=== PATIENT | male | born 1960 | race Hispanic/Latino ===

== ENCOUNTER 2017-02-02 04:07 | Inpatient (IN) | payer MEDICAID ==
--- NOTE | 2017-02-02 04:22 | ED PDOC ---
Arrival/HPI - General Chief Complaint: Chest Pain Time Seen by Provider: 02/02/17 04:09 Historian: Patient - History of Present Illness Narrative History of Present Illness (Text): 02/02/17 04:22 Kolby Castañeda is a 56 year old male, whose past medical history includes CAD s/p PTCA, hypertension, diabetes, and hyperlipidemia, who presents to the Emergency department complaining of intermittent left-sided chest tightess since 22:00 4 days ago. Patient had an aspirin at home earlier and states he feeding better currently. Patient denies any fever, chills, shortness of breath , nausea, vomiting, diarrhea, urinary symptoms, back pain, neck pain, headache, dizziness, or any other complaints. Time/Duration: < week (4 days) Symptom Onset: Gradual Symptom Course: Unchanged, Intermittent Activities at Onset: Rest, Light Context: Home Past Medical History - Provider Review Nursing Documentation Reviewed: Yes - Infectious Disease Hx of Infectious Diseases: None - Cardiac Hx Hypertension: Yes - Pulmonary Hx Respiratory Disorders: No - Neurological Hx Neurological Disorder: No - HEENT Other/Comment: Chronic Left ear condition, missing left TM. - Renal Hx Renal Disorder: No - Endocrine/Metabolic Hx Diabetes Mellitus Type 2: Yes - Hematological/Oncological Hx Blood Disorders: No - Integumentary Hx Dermatological Disorder: No - Musculoskeletal/Rheumatological Hx Musculoskeletal Disorders: No Hx Falls: No - Gastrointestinal Hx Gastrointestinal Disorders: No - Genitourinary/Gynecological Hx Genitourinary Disorders: No - Psychiatric Hx Psychophysiologic Disorder: No Hx Substance Use: No - Surgical History Hx Cholecystectomy: Yes Other/Comment: cyst on back - Anesthesia Hx Anesthesia: No - Suicidal Assessment Feels Threatened In Home Enviroment: No Family/Social History - Physician Review Nursing Documentation Reviewed: Yes Family/Social History: No Known Family HX Smoking Status: Never Smoked Hx Alcohol Use: Yes (social) Hx Substance Use: No Hx Substance Use Treatment: No Allergies/Home Meds Allergies/Adverse Reactions: Allergies No Known Allergies Allergy (Verified 02/02/17 04:10) Home Medications: Home Meds Medication Instructions Recorded Confirmed Canagliflozin [Invokana] 100 mg PO DAILY 11/30/16 02/02/17 Cetirizine HCl [Wal-Zyr] 10 mg PO DAILY 11/30/16 02/02/17 Fenofibrate [Triglide] 160 mg PO DAILY 11/30/16 02/02/17 Folic Acid 400 mg PO BID 11/30/16 02/02/17 Insulin Glargine, Recombina 50 unit SC HS 11/30/16 02/02/17 [Lantus] Insulin Lispro [humALOG] 18 units SC TID 11/30/16 02/02/17 Losartan [Cozaar] 100 mg PO DAILY 11/30/16 02/02/17 Metoprolol Succinate [Toprol XL] 25 mg PO BID 11/30/16 02/02/17 Multivit-Min/FA/Lycopen/Lutein 1 each PO DAILY 11/30/16 02/02/17 [Centrum Silver Tablet] Omeprazole 40 mg PO DAILY 11/30/16 02/02/17 Pravastatin Sodium [Pravachol] 80 mg PO DAILY 11/30/16 02/02/17 metFORMIN [glucOPHAGE] 500 mg PO BID 11/30/16 02/02/17 Aspirin [Ecotrin] 81 mg PO DAILY 02/02/17 02/02/17 Review of Systems - Physician Review All systems were reviewed & negative as marked: Yes - Review of Systems Constitutional: Normal Eyes: Normal ENT: Normal Respiratory: Normal. absent: SOB, Cough Cardiovascular: Chest Pain Gastrointestinal: Normal. absent: Abdominal Pain, Diarrhea, Nausea Genitourinary Male: Normal. absent: Dysuria, Frequency, Hematuria, Urinary Output Changes Musculoskeletal: Normal. absent: Back Pain, Neck Pain Skin: Normal Neurological: Normal. absent: Headache, Dizziness Endocrine: Normal Hemo/Lymphatic: Normal Psychiatric: Normal Physical Exam Vital Signs Reviewed: Yes Vital Signs Temp Pulse Resp BP Pulse Ox 02/02/17 07:56 98.2 F 80 18 117/62 99 02/02/17 06:30 81 16 122/70 97 02/02/17 04:16 93 H 18 135/71 98 Temperature: Afebrile Blood Pressure: Normal Pulse: Regular Respiratory Rate: Normal Appearance: Positive for: Well-Appearing, Non-Toxic, Comfortable Pain Distress: None Mental Status: Positive for: Alert and Oriented X 3 - Systems Exam Head: Present: Atraumatic, Normocephalic Pupils: Present: PERRL Extroacular Muscles: Present: EOMI Conjunctiva: Present: Normal Mouth: Present: Moist Mucous Membranes Neck: Present: Normal Range of Motion Respiratory/Chest: Present: Clear to Auscultation, Good Air Exchange. No: Respiratory Distress, Accessory Muscle Use Cardiovascular: Present: Regular Rate and Rhythm, Normal S1, S2. No: Murmurs Abdomen: Present: Normal Bowel Sounds. No: Tenderness, Distention, Peritoneal Signs Back: Present: Normal Inspection Upper Extremity: Present: Normal Inspection. No: Cyanosis, Edema Lower Extremity: Present: Normal Inspection. No: Edema Neurological: Present: GCS=15, CN II-XII Intact, Speech Normal Skin: Present: Warm, Dry, Normal Color. No: Rashes Psychiatric: Present: Alert, Oriented x 3, Normal Insight, Normal Concentration Medical Decision Making ED Course and Treatment: 02/02/17 04:22 Impression: 56 year old male complaining of left-sided chest pain for 4 days. Plan: -- EKG -- Chest X-ray -- Labs, cardiac enzymes -- Reassess and disposition Prior Visits: Notes and results from previous visits were reviewed. Progress Notes: Reviewed EKG, NSR at 63 bpm. No acute changes. 02/02/17 05:15 Reviewed radiology, Chest X-ray shows no active disease. 02/02/17 05:[address] Jones, covering for Dr. Chaudhry, who is aware and agrees with plan. Accepts pt in to his service. Pt will go to Telemetry./Josh on consult. Pt is no acute distress. Discussed results and plan with pt, who is aware and verbalizes understanding. 02/02/17 07:00 Case d/w .Request hold any anticoagulation rx. for now. to evaluate. - Lab Interpretations Lab Results: 02/02/17 05:13 02/02/17 05:13 Lab Results 02/02/17 05:13: WBC 7.6 D, RBC 4.75, Hgb 11.0 L, Hct 35.1 L, MCV 73.9 L, MCH 23.2 L, MCHC 31.3, RDW 18.7 H, Plt Count 240, MPV 11.8 H, PT 10.9, INR 1.01, APTT 26.4, Sodium 137, Potassium 4.4, Chloride 103, Carbon Dioxide 23, Anion Gap 15, BUN 26 H, Creatinine 1.1, Est GFR ( Amer) > 60, Est GFR (Non-Af Amer) > 60, Random Glucose 307 H*, Calcium 9.5, Total Bilirubin 0.4, AST 28, ALT 24, Alkaline Phosphatase 67, Lactate Dehydrogenase 379, Total Creatine Kinase 106, Troponin I 0.75 H* D, Total Protein 7.2, Albumin 4.0, Globulin 3.3, Albumin/Globulin Ratio 1.2 I have reviewed the lab results: Yes - RAD Interpretation Narrative RAD Interpretations (Text): Chest X-ray shows no active disease. Radiology Orders: 02/02/17 04:24 CHEST PORTABLE [RAD] Stat Veterinary Microbiologist: ED Physician - EKG Interpretation Interpreted by ED Physician: Yes Type: 12 lead EKG - Medication Orders Current Medication Orders: Aspirin (Ecotrin) 81 mg PO DAILY [facility] Atorvastatin Calcium (Lipitor) 20 mg PO DIN [facility] Last Admin: 02/02/17 18:19 Dose: 20 MG Clopidogrel Bisulfate (Plavix) 75 mg PO DAILY [facility] Fenofibrate (Tricor) 145 mg PO DAILY [facility] Last Admin: 02/02/17 09:52 Dose: 145 MG Folic Acid (Folic Acid) 1 mg PO BID [facility] Last Admin: 02/02/17 18:20 Dose: 1 MG Sodium Chloride (Sodium Chloride 0.9%) 1,000 mls @ 100 mls/hr IV .Q10H [facility] Last Admin: 02/02/17 18:19 Dose: 100 MLS/HR eMAR Start Stop Document 02/02/17 18:19 CHART (Rec: 02/02/17 18:20 CHART [id number]) Intravenous Solution Start Date 02/02/17 Start Time 17:07 Insulin Detemir (Levemir) 50 unit SC HS [facility] Insulin Human Lispro (Humalog) 18 units SC TID [facility] Last Admin: 02/02/17 18:26 Dose: 18 UNITS Subcutaneous Administrations Document 02/02/17 18:26 CHART (Rec: 02/02/17 18:26 CHART [id number]) Charges for Administration # of Subcutaneous Administrations 1 Loratadine (Claritin) 10 mg PO HS [facility] Losartan Potassium (Cozaar) 100 mg PO DAILY [facility] Last Admin: 02/02/17 09:39 Dose: Metoprolol Succinate (Toprol Xl) 25 mg PO BID [facility] Last Admin: 02/02/17 18:20 Dose: 25 MG MAR Pulse and Blood Pressure Document 02/02/17 18:20 CHART (Rec: 02/02/17 18:21 CHART [id number]) Pulse Pulse Rate (60-90) 86 Blood Pressure Blood Pressure (100/60-150/90) 112/64 Non-Formulary Medication (Multivit-Min/Fa/Lycopen/Lutein [Centrum Silver Tablet] ) 1 each PO DAILY [facility] Last Admin: 02/02/17 09:36 Dose: Pantoprazole Sodium (Protonix Ec Tab) 40 mg PO ACB [facility] Discontinued Medications Aspirin (Ecotrin) 325 mg PO DAILY [facility] Last Admin: 02/02/17 09:49 Dose: 325 MG Atropine Sulfate (Atropine) Confirm Administered Dose 1 mg .ROUTE .STK-MED ONE Stop: 02/02/17 14:44 Last Admin: 02/02/17 16:49 Dose: Clopidogrel Bisulfate (Plavix) 300 mg PO STAT [facility] Stop: 02/02/17 09:27 Last Admin: 02/02/17 09:49 Dose: 300 MG Clopidogrel Bisulfate (Plavix) Confirm Administered Dose 300 mg .ROUTE .STK-MED ONE Stop: 02/02/17 16:48 Last Admin: 02/02/17 16:54 Dose: 300 MG Eptifibatide (Integrilin Bolus) Confirm Administered Dose 40 mg IVP .STK-MED ONE Stop: 02/02/17 15:53 Last Admin: 02/02/17 15:52 Dose: 18 MG Comments: Integrilin IV Bolus 9 ml was given @ 1552, an additional dose of Integrilin IV 9 ml was given @ 1602 IVP Administration Document 02/02/17 15:52 KPA (Rec: 02/02/17 16:51 KPA [id number]) Charges for Administration # of IVP Administrations 2 Fentanyl (Fentanyl) Confirm Administered Dose 100 mcg .ROUTE .STK-MED ONE Stop: 02/02/17 14:53 Last Admin: 02/02/17 15:24 Dose: 100 MCG Comments: Dr. Norbert Moreno adm. Fentanyl 50 mcg IV @ 1524, an additional dose of Fentanyl 50 mcg IV was given @ 1529 MAR Pain Assessment Document 02/02/17 15:24 KPA (Rec: 02/02/17 16:49 KPA [id number]) Pain Reassessment Is this a pain reassessment? No Sleep Is patient sleeping during reassessment? No Presence of Pain Presence of Pain Yes Heparin Sodium (Porcine) (Heparin) Confirm Administered Dose 10,000 units .ROUTE .STK-MED ONE Stop: 02/02/17 14:45 Last Admin: 02/02/17 15:34 Dose: 4,000 UNITS Comments: Dr. Norbert Moreno adm. Heparin 2500 Units IA @ 1534, an additonal dose of Heparin 1500 Units IV was given @ 1551 Nitroglycerin/Dextrose (Nitroglycerin 50 Mg/250 Ml D5w) Confirm Administered Dose 250 mls @ ud IV .STK-MED ONE Stop: 02/02/17 14:46 Last Admin: 02/02/17 15:34 Dose: 0.2 MG Comments: Dr. Garcia adm. Nitroglycerin 200 mcg IA @ 1534 eMAR Start Stop Document 02/02/17 15:34 KPA (Rec: 02/02/17 16:53 KPA [id number]) Intravenous Solution Start Date 02/02/17 Start Time 15:34 End Date 02/02/17 End time 15:34 Total Infusion Time 0 Heparin Sodium (Porcine) (Heparin 1000 Units/500 Ml Ns) Confirm Administered Dose 1,500 mls @ ud IV .STK-MED ONE Stop: 02/02/17 14:46 Insulin Detemir (Levemir) 25 unit SC Q12 [facility] Iodixanol (Visipaque 320 Mg/Ml 100 Ml) Confirm Administered Dose 100 ml IV .STK- MED ONE Stop: 02/02/17 14:46 Iodixanol (Visipaque 320 Mg/Ml 200 Ml) Confirm Administered Dose 200 ml IV .STK- MED ONE Stop: 02/02/17 14:46 Iodixanol (Visipaque 320 Mg/Ml 100 Ml) Confirm Administered Dose 100 ml IV .STK- MED ONE Stop: 02/02/17 16:32 Iohexol (Omnipaque 350mg/Ml 50 Ml) Confirm Administered Dose 50 ml .ROUTE .STK- MED ONE Stop: 02/02/17 14:46 Lidocaine HCl (Lidocaine 2% 20ml Vial) Confirm Administered Dose 20 ml .ROUTE .STK-MED ONE Stop: 02/02/17 14:45 Loratadine (Claritin) 10 mg PO DAILY [facility] Metoprolol Tartrate (Lopressor) 25 mg PO ONCE STA Stop: 02/02/17 06:59 Last Admin: 02/02/17 07:24 Dose: Midazolam HCl (Versed Inj) Confirm Administered Dose 2 mg .ROUTE .STK-MED ONE Stop: 02/02/17 14:53 Last Admin: 02/02/17 15:24 Dose: 2 MG Comments: Dr. Norbert Moreno adm. Versed 1 mg IV @ 1524 and @ 1529 Phenylephrine HCl (Phenylephrine Inj) Confirm Administered Dose 10 mg .ROUTE .STK-MED ONE Stop: 02/02/17 15:46 Last Admin: 02/02/17 16:54 Dose: Verapamil HCl (Verapamil Inj) Confirm Administered Dose 5 mg IVP .STK-MED ONE Stop: 02/02/17 14:45 Last Admin: 02/02/17 15:34 Dose: 2.5 MG Comments: Dr. Norbert Moreno adm.Verapamil 2.5 mg IA @ 1534 MAR Pulse and Blood Pressure Document 02/02/17 15:34 KPA (Rec: 02/02/17 16:55 KPA [id number]) Pulse Pulse Rate (60-90) 81 Blood Pressure Blood Pressure (100/60-150/90) 117/63 IVP Administration Document 02/02/17 15:34 KPA (Rec: 02/02/17 16:55 KPA [id number]) Charges for Administration # of IVP Administrations 1 - Scribe Statement The provider has reviewed the documentation as recorded by the Yahaira Herring Provider Attestation: All medical record entries made by the Jaspreetibclaudio were at my direction and personally dictated by me. I have reviewed the chart and agree that the record accurately reflects my personal performance of the history, physical exam, medical decision making, and the department course for this patient. I have also personally directed, reviewed, and agree with the discharge instructions and disposition. Disposition/Present on Arrival - Present on Arrival Any Indicators Present on Arrival: No History of DVT/PE: No History of Uncontrolled Diabetes: Yes Urinary Catheter: No History of Decub. Ulcer: No History Surgical Site Infection Following: None - Disposition Have Diagnosis and Disposition been Completed?: Yes Diagnosis: Chest pain, NSTEMI (non-ST elevated myocardial infarction) Disposition: HOSPITALIZED Disposition Time: 06:07 Patient Plan: Admission, Observation Patient Problems: Current Active Problems Problem Status Diagnosed Chest pain Acute NSTEMI (non-ST elevated myocardial infarction) Acute Condition: GOOD
[2017-02-02 05:18] LABS: HEMATOCRIT 35.1 % (42.0-52.0); MEAN CELL VOLUME 73.9 fL (80.0-105.0); MEAN CORPUSCULAR HEMOGLOBIN 23.2 pg (25.0-35.0); MEAN CORPUSCULAR HGB CONC 31.3 g/dl (31.0-37.0); MEAN PLATELET VOLUME 11.8 fl (7.0-11.0); RED CELL DISTRIBUTION WIDTH 18.7 % (11.5-14.5); WHITE BLOOD COUNT 7.6 10^3/ul (4.5-11.0)
[2017-02-02 05:26] LABS: ALB/GLOB RATIO 1.2 (1.1-1.8); ALKALINE PHOSPHATASE 67 U/L (38-133); ALT/SGPT 24 U/L (7-56); AST/SGOT 28 U/L (15-59); BILIRUBIN,TOTAL 0.4 mg/dL (0.2-1.3); BLOOD UREA NITROGEN 26 mg/dL (7-21); CALCIUM 9.5 mg/dL (8.4-10.5); CARBON DIOXIDE 23 mmol/L (21-33); CHLORIDE 103 mmol/L (95-110); GFR AFRICAN-AMERICAN > 60; INR 1.01 (0.93-1.08); PARTIAL THROMBOPLASTIN TIME 26.4 Seconds (23.7-30.8); POTASSIUM 4.4 mmol/L (3.6-5.0); SODIUM 137 mmol/L (132-148); TOTAL PROTEIN 7.2 g/dL (5.8-8.3)
[2017-02-02 05:31] LABS: GLUCOSE,RANDOM 307 mg/dL (70-110)
[2017-02-02 06:24] LABS: TROPONIN I 0.75 ng/mL
[2017-02-02] MEDS ORDERED: Enoxaparin 100 mg Syringe SC STA (06:41)
--- NOTE | 2017-02-02 07:28 | RAD ---
HISTORY: pain COMPARISON: Comparison chest dated 06/15/2015 FINDINGS: LUNGS: . Poor inspiration with low lung volumes, mild crowded bronchovascular markings and mild bibasilar atelectasis. PLEURA: No significant pleural effusion identified, no pneumothorax apparent. CARDIOVASCULAR: Heart size is upper limits of normal. OSSEOUS STRUCTURES: No significant abnormalities. VISUALIZED UPPER ABDOMEN: Normal. OTHER FINDINGS: None. IMPRESSION: . Poor inspiration with low lung volumes, mild crowded bronchovascular markings and mild bibasilar atelectasis.
[2017-02-02 08:00] VITALS: O2SAT 99
[2017-02-02] MEDS: Metoprolol Succinate 25 mg XL Tab PO SCH ×2 (09:35→18:20)
[2017-02-02] MEDS: Non Formulary Medication (Multivit-Min/Fa/Lycopen/Lutein [Centrum Silver Tablet] 1 EACH) PO SCH (09:36)
[2017-02-02 09:47] LABS: CHOLESTEROL 167 mg/dL (130-200)
[2017-02-02] MEDS: Insulin Lispro 1 UNITS/0.01 ML SC SCH ×3 (09:49→18:26)
[2017-02-02] MEDS ORDERED: Enoxaparin 40 mg Syringe SC SCH (10:00)
[2017-02-02] MEDS ORDERED: Aspirin 325 mg EC Tablets PO SCH (10:00)
[2017-02-02] MEDS ORDERED: Insulin Detemir 100 units/ml Vial (Levemir) SC SCH ×2 (10:00→22:00)
--- NOTE | 2017-02-02 10:45 | CON ---
DATE: 02/02/2017 REASON FOR CONSULTATION: Chest pain, acute coronary syndrome, unstable angina, non-ST segment myocar dial infarction, history of coronary artery disease, PTCA in the past. BRIEF CLINICAL HISTORY: A 56-year-old male with past medical history significant for coronary artery disease status post PTCA, plain balloon angioplasty [address] Magallanes. Because of small tania ry, balloon was done, stent was not placed. Diabetes, hypertension, hyperlipidemia, obesity, chronic ear condition, problem with the left tympanic membrane, who had chest pain on Tuesday night, left-s ided, for an hour, then it got better. Tuesday, patient went to the [facility], no problem, but last night again, some chest pain recurrence, so patient came to the Emergency Room. First trop onin was positive borderline 0.75. Still has chest pain. PAST MEDICAL HISTORY: Significant for coronary artery disease, status post PTCA, plain balloon angio plasty in 2005 or 2006. Because the artery was small, a stent was not placed. Diabetes, hypertensio n, hyperlipidemia, history of left tympanic membrane requiring surgery, diabetes, hypertension. PREVIOUS CARDIAC WORKUP: The patient had a stress test, myocardial perfusion study, 06/16/2015 that s howed fixed inferior defect , normal myocardial perfusion study, ejection fraction 52% dated 01/2015. The patient had echocardiography 06/16/2015 that showed systolic function mildly reduced at 4 5%-50%, trace aortic regurgitation, mild mitral regurgitation, mild tricuspid regurgitation, RV systo lic pressure 22, left ventricle mild concentric hypertrophy. SOCIAL HISTORY: Denies smoking. Denies any history of alcohol abuse. ALLERGIES: No known drug allergy. CURRENT MEDICATIONS: The patient is taking at home aspirin 81 mg, folic acid, fenofibrate, Invokana, losartan, insulin, metoprolol succinate 25 mg twice. REVIEW OF SYSTEMS: As per HPI. PHYSICAL EXAMINATION: VITAL SIGNS: Temperature afebrile, heart rate 80, blood pressure 117/62. HEENT: PERRLA. Extraocular muscles intact. NECK: Supple. No carotid bruits. No thyromegaly. CHEST: Clear to auscultation. HEART: S1, S2 regular. ABDOMEN: Soft. EXTREMITIES: Clubbing, cyanosis negative. BLOOD WORKUP: WBC 7. , hemoglobin 11, hematocrit 35.1, platelet count 240. Chemistry shows sodi um 137, potassium 4.4, chloride 103, carbon dioxide 23, anion gap of 15, BUN 26, creatinine 1.1, rand om sugar 306. Troponin 0.75. EKG showed normal sinus, poor R-wave progression, no acute ST-T changes noted, left axis deviation. IMPRESSION: Chest pain, acute coronary syndrome, unstable angina, mild cardiomyopathy, history of pe rcutaneous transluminal coronary angioplasty 2005 or 2006, plain balloon angioplasty by Dr. Magallanes, figueroa nt was not placed because of small vessels, diabetes, hypertension, hyperlipidemia, obesity, body mas s index 35.5 kg/meters squared. Height of the patient is 5 feet 7 inches, weight is 226 pounds. Initial angioplasty was done, Dr. Magallanes, but patient had a change in insurance and cannot go to Dr. Chandler sun because of the insurance, so last admission, cardiology consultation was seen by me on 06/16/2015 a nd then a stress test and echo was done and then patient lost followup. Today, patient in ER, again called us to be seen by ER physician. Discussed with Dr. Magallanes again this morning. Dr. Magallanes agreed t o continue taking care by me. I discussed with the patient. The patient also wanted to be continued taken care by us. We will follow. We will schedule for cardiac catheterization at 3 p.m. and load with 300 mg of Plavix. Hold Lovenox. Give aspirin. Continue beta kendall. We will get echo to ass ess left ventricular function. We will get lipid profile, TSH, and hemoglobin A1c. Further recommen dation based on the hospital course and after cardiac catheterization. Thank you, Dr. Chaudhry/Dr. Preston Jones, for providing us the opportunity in taking care of the pa masoud. Rowdy Moreno MD cc: [id number] TT: 02/02/2017 10:44:07 Confirmation # [id number] Dictation # [id number]
--- NOTE | 2017-02-02 11:34 | CP.PCM.HP ---
History of Present Illness - History of Present Illness History of Present Illness: PGY-1 H&P 56 yo male with PMH of CAD s/p PTCA, HTN, DM, HLD presented with left sided chest pain. Patient states that the pain started Tuesday night and has been intermittent since then. He describes the pain as squeezing that radiates to left shoulder and begins to go down his arm. He states that he had another episode of chest pain Tuesday morning. He states that he walked in the parade on Tuesday without any problems. Last night he was woken with the squeezing pain and decided to come to the hospital. He states he took his normal medications. He states at the time his took his BP and heart rate which was normal. Patients states that he is normally diaphoretic. He denies SOB, fevers, chills, cough, n/ v/d/c, abd pain, urinary symptoms, muscle/joint pain. In ED he states he felt better. EKG showed normal sinus. PMH; CAD s/p PTCA, HTN, DM, HLD PSH; ear drum repair, cardiac cath Social; quit smoking 11 yo, drinks 3 beers/week, denies illicit drug use allergy; NKDA Fhx; father past from [place] at 76yo, mother- DM, heart dz Present on Admission - Present on Admission Any Indicators Present on Admission: No Review of Systems - Constitutional Constitutional: absent: Chills, Fever, Weight Gain, Weight Loss - EENT Eyes: absent: Blurred Vision Nose/Mouth/Throat: absent: Nasal Discharge, Sore Throat - Cardiovascular Cardiovascular: Chest Pain, Chest Pain at Rest, Diaphoresis. absent: Dyspnea - Respiratory Respiratory: absent: Cough, Dyspnea, Hemoptysis - Gastrointestinal Gastrointestinal: absent: Abdominal Pain, Constipation, Diarrhea, Nausea, Vomiting - Genitourinary Genitourinary: absent: Difficulty Urinating, Dysuria, Hematuria - Musculoskeletal Musculoskeletal: Radiating Pain into Limb. absent: Myalgias, Numbness, Tingling - Integumentary Integumentary: absent: Rash - Neurological Neurological: absent: Dizziness, Numbness, Headaches, Tingling, Weakness - Hematologic/Lymphatic Hematologic: absent: Easy Bleeding, Easy Bruising Past Patient History - Infectious Disease Hx of Infectious Diseases: None - Past Social History Smoking Status: Never Smoked Alcohol: Occasional Drugs: Denies - CARDIAC Hx Hypertension: Yes - PULMONARY Hx Respiratory Disorders: No - NEUROLOGICAL Hx Neurological Disorder: No - HEENT Other/Comment: Chronic Left ear condition, missing left TM. - RENAL Hx Chronic Kidney Disease: No - ENDOCRINE/METABOLIC Hx Diabetes Mellitus Type 2: Yes - HEMATOLOGICAL/ONCOLOGICAL Hx Blood Disorders: No - INTEGUMENTARY Hx Dermatological Problems: No - MUSCULOSKELETAL/RHEUMATOLOGICAL Hx Musculoskeletal Disorders: No Hx Falls: No - GASTROINTESTINAL Hx Gastrointestinal Disorders: No - GENITOURINARY/GYNECOLOGICAL Hx Genitourinary Disorders: No - PSYCHIATRIC Hx Psychophysiologic Disorder: No Hx Substance Use: No - SURGICAL HISTORY Hx Cholecystectomy: Yes Other/Comment: cyst on back - ANESTHESIA Hx Anesthesia: No Meds Allergies/Adverse Reactions: Allergies Allergy/AdvReac Type Severity Reaction Status Date / Time No Known Allergies Allergy Verified 02/02/17 04:10 Physical Exam - Constitutional Appears: Well, No Acute Distress - Head Exam Head Exam: ATRAUMATIC, NORMOCEPHALIC - Eye Exam Eye Exam: Normal appearance - ENT Exam ENT Exam: Mucous Membranes Moist - Respiratory Exam Respiratory Exam: Clear to Auscultation Bilateral, NORMAL BREATHING PATTERN. absent: Rhonchi, Wheezes, Respiratory Distress - Cardiovascular Exam Cardiovascular Exam: REGULAR RHYTHM. absent: Tachycardia, Diastolic murmur, Systolic Murmur - GI/Abdominal Exam GI & Abdominal Exam: Normal Bowel Sounds, Soft. absent: Distended, Firm, Tenderness - Extremities Exam Extremities exam: Positive for: normal inspection. Negative for: pedal edema - Neurological Exam Neurological exam: Alert, Oriented x3 - Skin Skin Exam: Dry, Normal Color, Warm Results - Vital Signs Recent Vital Signs: Last Vital Signs Temp 98.2 F 02/02/17 07:56 Pulse 80 02/02/17 07:56 Resp 18 02/02/17 07:56 BP 117/62 02/02/17 07:56 Pulse Ox 99 02/02/17 07:56 - Labs Result Diagrams: 02/02/17 05:13 02/02/17 05:13 Labs: Laboratory Results - last 24 hr 02/02/17 09:34 Triglycerides 219 H Cholesterol 167 LDL Cholesterol Direct 102 HDL Cholesterol 36 Assessment & Plan - Assessment and Plan (Free Text) Assessment: 56 yo male with PMH of CAD s/pPTCA, HTN, DM, HLD presented with left sided non- reproducible chest pain. EKG was NSR, trops elevated at 0.75. Plan: 1. chest pain - possible NSTEMI - trops elevtaed 0.75 - EKG NSR - Cardio, Dr. Josh forbes - last stress test 07/08 showed EF of 52% - Cardiac cath at 3 pm per cardiology - f/u TSH, trend trops 2. DM - cont home insulin; levemir 50 units HS, lispro 18 SC TID - ISSS low - fingersticks ACHS - HgbA1c 3. HTN - cont home med lopressor, losartan - cont to monitor 4. HLD - cont home med lipitor and fenofibrate Ppx - Protonix and SCDs
[2017-02-02 13:24] LABS: TROPONIN I 1.14 ng/mL
[2017-02-02] MEDS ORDERED: Lidocaine 2% Inj (20ml) ONE (14:44)
[2017-02-02] MEDS ORDERED: Iohexol 350mgl/ml 50 ML ONE (14:45)
[2017-02-02] MEDS ORDERED: Nitroglycerin 50mg in D5W 250 ML IV ONE (14:45)
[2017-02-02] MEDS ORDERED: Iodixanol 320 MG/ML 200 ML BOTTLE IV ONE (14:45)
[2017-02-02] MEDS ORDERED: Iodixanol 320 MG/ML 100 ML BOTTLE IV ONE ×2 (14:45→16:31)
[2017-02-02] MEDS ORDERED: Midazolam 2 MG/2 ML VIAL ONE (14:52)
[2017-02-02] MEDS ORDERED: Phenylephrine 10 mg/ml Inj ONE (15:45)
[2017-02-02] MEDS ORDERED: Eptifibatide 20 mg/10mL Inj IVP ONE (15:52)
[2017-02-02] MEDS: Sodium Chloride 0.9% 1,000 ML IV SCH (18:19)
[2017-02-02 19:15] LABS: ADD MANUAL DIFF? NO
[2017-02-02 19:17] LABS: BASO # 0.01 K/mm3 (0.0-2.0); BASO % 0.1 % (0.0-3.0); EOS # 0.1 (0.0-0.7); EOS % 1.2 % (1.5-5.0); GRAN # 5.05 (1.4-6.5); GRAN % 68.5 % (50.0-68.0); HEMATOCRIT 33.9 % (42.0-52.0); LYMPH # 1.6 (1.2-3.4); LYMPH % 22.2 % (22.0-35.0); MEAN CELL VOLUME 73.1 fL (80.0-105.0); MEAN CORPUSCULAR HEMOGLOBIN 22.8 pg (25.0-35.0); MEAN CORPUSCULAR HGB CONC 31.3 g/dl (31.0-37.0); MONO # 0.6 (0.1-0.6); PLATELET COUNT 177 10^3/uL (120.0-450.0); RED CELL DISTRIBUTION WIDTH 18.5 % (11.5-14.5); WHITE BLOOD COUNT 7.4 10^3/ul (4.5-11.0)
--- NOTE | 2017-02-02 19:22 | CARD ---
APPROVED REPORT Procedure(s) performed: Left Heart Catheterization PTCA with Stenting of Proximal LAd with JESSICA PTCA with Stenting of Proximal RCA with JESSICA Attempted to cross Cx, unsuccessful b/c tortousity. HISTORY with treatment , coronary artery disease, previous PCI (The PCI date was 2006), hypertension , dyslipidemia , family history of premature CAD , Hx of POBA of Cx in 2005 unable to take stent b/c of tortousity of vessel admitted with NSTEMI. INDICATION The indication(s) include : unstable angina , non-STEMI , chest pain. CASE TECHNIQUE The patient was brought emergently to the Cardiac Catheterization Laboratory in a fasting state and was prepped and draped in a sterile manner. The left wrist was infiltrated with 2% Lidocaine subcutaneous anesthesia. A 6 Fr Glidesheath (Radial) sheath was inserted into the left radial artery without difficulty. Coronary angiography was performed using coronary diagnostic catheters. The left coronary system was accessed and visualized with a Diagnostic ,JL4.0,5Fr catheter. The right coronary system was accessed and visualized with a Diagnostic ,JR3.5,,5Fr catheter. The left ventricle was accessed and visualized with a pigtail catheter. Left ventricular/Aortic Valve gradient assessed on pullback. Left ventriculogram was performed in ORELLANA projection. Closure device was deployed with a Fr TR Band (Large) without any complications. The patient tolerated the procedure well and there were no complications associated with the procedure. Vessel Analysis The patient's coronary anatomy is right dominant. The left main coronary artery is a large size vessel with diffuse calcification noted throughout this vessel and without significant stenosis. The left main trifurcates to the left anterior descending, circumflex, and ramus. The left anterior descending artery is a medium size vessel with diffuse calcification noted throughout this vessel and with significant stenosis. There is a 95% stenosis in the proximal segment. The first diagonal branch is a small size vessel with diffuse calcification noted throughout this vessel and without significant stenosis. The second diagonal branch is a small size vessel with diffuse calcification noted throughout this vessel and without significant stenosis. The circumflex artery is a medium size vessel with diffuse calcification noted throughout this vessel and with significant stenosis. There is a 80-90% stenosis in the mid segment. The first obtuse marginal branch is a medium size vessel with diffuse calcification noted throughout this vessel and without significant stenosis. The ramus intermedius artery is a medium size vessel with diffuse calcification noted throughout this vessel and without significant stenosis. The right coronary artery is a large size vessel Very large caibre vessel, superdominant. There is a 70-80% stenosis in the proximal segment. The right posterior descending artery is a medium size vessel with diffuse calcification noted throughout this vessel and without significant stenosis. There is a 40-50% stenosis in the mid segment. Diffusely diseased The right posterolateral branch is a medium size vessel with diffuse calcification noted throughout this vessel and without significant stenosis. Left Ventricle The left ventricle is normal in size with normal contractility. There was no cardiomyopathy. The left ventricular ejection fraction is estimated to be 55-60%. The left ventricular end diastolic pressure is 15-18 mmHg. PCI Technique Lesion Anticoagulation was achieved with Heparin. Percutaneous coronary intervention was performed on the proximal left anterior descending artery segment. The lesion stenosis prior to intervention was 95% with JENNIFER 2 flow. A 6 Fr XB 3.5 Guide Catheter was used to engage the ostium. BALLOON DILATION A Balloon catheter 2.0 x 10 mm Sprinter RX was inserted and inflated up to 12.00atm for 19seconds. STENT DEPLOYMENT A drug-eluting stent 2.75 x 14 mm Resolute JESSICA was inserted and inflated up to 10.00atm for 20seconds. Final angiography reveals 0 % stenosis with JENNIFER 3 flow. PCI Technique Lesion 2 Percutaneous Coronary Intervention was performed on the proximal right coronary artery. The lesion stenosis prior to intervention was 70-80% with JENNIFER 3 flow. A 6 Fr XB 3.5 Guide Catheter was used to engage the ostium. STENT DEPLOYMENT A drug-eluting stent 3.5 x 15 mm Resolute JESSICA was inserted and inflated up to 18.00atm for 15seconds. POST STENT DEPLOYMENT BALLOON DILATION A Balloon catheter 3.75 x 9 mm Sprinter NC was inserted and inflated up to 18.00atm for 16seconds. Final angiography reveals 0 % stenosis with JENNIFER 3 flow. PCI Technique Lesion 3 Percutaneous Coronary Intervention was performed on the mid circumflex artery segment. The lesion stenosis prior to intervention was 70-80% with JENNIFER 3 flow. A 6 Fr XB 3.5 Guide Catheter was used to engage the ostium. COMMENTS Unable to cross b/c of tortousity of vessel. Conclusion Three Vessel CAD with poor target LAD for CABG. Preserved LV Fx. EF-55-60%, EDP-15-18 Successful PTCA with JESSICA of prximal LAD and RCA. Unable to cross Cx b/c of tortousity of vessel,( in the past 2005 only POBA could be done, was unable to take stent down). Recommendations Cardiac Rehabilitation ReferralDaily ASA with Plavix for at least one year Aggressive Medical TherapyCardiac Risk Reduction Program Weight Loss Reduction Program CC; Dr. Chaudhry/ Angelica
--- NOTE | 2017-02-02 19:27 | CARD ---
APPROVED REPORT EKG Measurement Heart [id number] OR 136P34 [id number] <Conclusion> Normal sinus rhythm Normal ECG
[2017-02-02 19:35] LABS: BLOOD UREA NITROGEN 24 mg/dL (7-21); CARBON DIOXIDE 23 mmol/L (21-33); CHLORIDE 101 mmol/L (98-107); GFR AFRICAN-AMERICAN > 60; GLUCOSE,RANDOM 217 mg/dL (70-110); SODIUM 136 mmol/L (132-148)
[2017-02-02 19:48] LABS: TROPONIN I 1.26 ng/mL
[2017-02-02 19:54] VITALS: RESP 20
--- NOTE | 2017-02-02 20:01 | CARD ---
APPROVED REPORT EKG Measurement Heart [id number] SD 132P45 [id number] <Conclusion> Normal sinus rhythm Normal ECG
[2017-02-02] MEDS ORDERED: INSULIN GLARGINE SC SCH (22:00)
[2017-02-02] MEDS ORDERED: Bacitracin 500 Units/gm Oint Foilpak UD ONE (22:09)
[2017-02-03] MEDS: Sodium Chloride 0.9% 1,000 ML IV SCH (04:16)
[2017-02-03 06:08] VITALS: TEMP 98.4
[2017-02-03 07:08] LABS: ADD MANUAL DIFF? NO
[2017-02-03 07:16] LABS: BASO # 0.01 K/mm3 (0.0-2.0); BASO % 0.1 % (0.0-3.0); EOS # 0.2 (0.0-0.7); EOS % 1.9 % (1.5-5.0); GRAN # 6.45 (1.4-6.5); GRAN % 75.9 % (50.0-68.0); HEMATOCRIT 35.6 % (42.0-52.0); LYMPH # 1.1 (1.2-3.4); LYMPH % 12.8 % (22.0-35.0); MEAN CELL VOLUME 73.4 fL (80.0-105.0); MEAN CORPUSCULAR HEMOGLOBIN 22.5 pg (25.0-35.0); MEAN CORPUSCULAR HGB CONC 30.6 g/dl (31.0-37.0); MONO # 0.8 (0.1-0.6); MONO % 9.3 % (1.0-6.0); PLATELET COUNT 212 10^3/uL (120.0-450.0); RED CELL DISTRIBUTION WIDTH 18.8 % (11.5-14.5); WHITE BLOOD COUNT 8.5 10^3/ul (4.5-11.0)
[2017-02-03] MEDS ORDERED: Pantoprazole 40 mg EC Tab PO SCH (07:30)
[2017-02-03 07:50] LABS: ALB/GLOB RATIO 1.2 (1.1-1.8); ALKALINE PHOSPHATASE 71 U/L (38-133); ALT/SGPT 19 U/L (7-56); AST/SGOT 26 U/L (15-59); BILIRUBIN,TOTAL 0.8 mg/dL (0.2-1.3); BLOOD UREA NITROGEN 19 mg/dL (7-21); CALCIUM 8.8 mg/dL (8.4-10.5); CARBON DIOXIDE 24 mmol/L (21-33); CHLORIDE 105 mmol/L (98-107); GFR AFRICAN-AMERICAN > 60; GLUCOSE,RANDOM 145 mg/dL (70-110); POTASSIUM 4.1 mmol/L (3.6-5.0); SODIUM 139 mmol/L (132-148); TOTAL PROTEIN 7.1 g/dL (5.8-8.3)
[2017-02-03] MEDS: Metoprolol Succinate 25 mg XL Tab PO SCH (09:13)
[2017-02-03] MEDS: Insulin Lispro 1 UNITS/0.01 ML SC SCH (09:14)
[2017-02-03 09:17] VITALS: BP 129/64; PULSE 98
[2017-02-03] MEDS: Non Formulary Medication (Multivit-Min/Fa/Lycopen/Lutein [Centrum Silver Tablet] 1 EACH) PO SCH (10:04)
--- NOTE | 2017-02-03 11:44 | PN ---
DATE: 02/03/2017 REASON FOR CONSULTATION AND FOLLOWUP: Acute coronary syndrome, unstable angina, [id number] myoca rdial infarction, coronary artery disease, status post multivessel angioplasty yesterday. BRIEF CLINICAL HISTORY: This is a 56-year-old male with past medical history significant for coronar y artery disease status post PTCA balloon angioplasty [address] Magallanes. Admitted because of unstable angina. The patient underwent a cardiac catheterization and stenting of proximal LAD and proximal R CA with drug-eluting stent. Attempted circ, tortuosity of the vessel. Because of tortuosity was priya ble to cross with a balloon but crossed it with a wire. Medical treatment recommended. The patient is sitting in the chair post ____. Denies any chest pain, shortness of breath, any palpitation. PHYSICAL EXAMINATION: VITAL SIGNS: Temperature afebrile, heart rate 90, blood pressure 129/64. HEENT: PERRLA. Extraocular muscles intact. NECK: Supple. No carotid bruits. No thyromegaly. CHEST: Clear to auscultation. HEART: S1, S2 regular. ABDOMEN: Soft. EXTREMITIES: Clubbing and cyanosis negative. BLOOD WORKUP: WBC 8.5, hemoglobin 10.9, hematocrit 35.9, platelet count 212. Chemistry shows sodium 139, potassium 4.____, chloride 105, carbon dioxide 24, anion gap of 14, BUN 19, creatinine 1.0. IMPRESSION: Acute coronary syndrome, unstable angina, diabetes, hypertension, hyperlipidemia, long ry artery disease status post multiple stents yesterday, multivessel angioplasty, proximal left anter ior descending and proximal right coronary artery. RECOMMENDATION: Continue aspirin, continue Plavix, continue losartan, continue metoprolol. Possible discharge today. Will follow with you. Thank you, Dr. Chaudhry, for providing the opportunity in taking care of this patient. Will follow w ith you. Will discontinue IV fluid. Possible discharge planning. Rowdy Moreno MD cc: [id number] TT: 02/03/2017 11:44:37 Confirmation # [id number] Dictation # [id number]
--- NOTE | 2017-02-03 12:52 | CP.PCM.DIS ---
Provider - Provider Date of Admission: 02/02/17 06:03 Attending physician: Anant Chaudhry MD Time Spent in preparation of Discharge (in minutes): 35 Hospital Course - Lab Results Lab Results: Most Recent Lab Values WBC 8.5 10^3/ul (4.5-11.0) 02/03/17 07:00 RBC 4.85 10^6/uL (3.5-6.1) 02/03/17 07:00 Hgb 10.9 gm/dL (14.0-18.0) L 02/03/17 07:00 Hct 35.6 % (42.0-52.0) L 02/03/17 07:00 MCV 73.4 fL (80.0-105.0) L 02/03/17 07:00 MCH 22.5 pg (25.0-35.0) L 02/03/17 07:00 MCHC 30.6 g/dl (31.0-37.0) L 02/03/17 07:00 RDW 18.8 % (11.5-14.5) H 02/03/17 07:00 Plt Count 212 10^3/uL (120.0-450.0) 02/03/17 07:00 MPV 11.8 fl (7.0-11.0) H 02/02/17 05:13 Gran % 75.9 % (50.0-68.0) H 02/03/17 07:00 Lymph % (Auto) 12.8 % (22.0-35.0) L 02/03/17 07:00 [place] % (Auto) 9.3 % (1.0-6.0) H 02/03/17 07:00 Eos % (Auto) 1.9 % (1.5-5.0) 02/03/17 07:00 Baso % (Auto) 0.1 % (0.0-3.0) 02/03/17 07:00 Gran # 6.45 (1.4-6.5) 02/03/17 07:00 Lymph # 1.1 (1.2-3.4) L 02/03/17 07:00 [place] # 0.8 (0.1-0.6) H 02/03/17 07:00 Eos # 0.2 (0.0-0.7) 02/03/17 07:00 Baso # 0.01 K/mm3 (0.0-2.0) 02/03/17 07:00 PT 10.9 Seconds (9.9-11.8) 02/02/17 05:13 INR 1.01 (0.93-1.08) 02/02/17 05:13 APTT 26.4 Seconds (23.7-30.8) 02/02/17 05:13 Sodium 139 mmol/L (132-148) 02/03/17 07:00 Potassium 4.1 mmol/L (3.6-5.0) 02/03/17 07:00 Chloride 105 mmol/L (98-107) 02/03/17 07:00 Carbon Dioxide 24 mmol/L (21-33) 02/03/17 07:00 Anion Gap 14 (10-20) 02/03/17 07:00 BUN 19 mg/dL (7-21) 02/03/17 07:00 Creatinine 1.0 mg/dL (0.5-1.4) 02/03/17 07:00 Est GFR ( Amer) > 60 02/03/17 07:00 Est GFR (Non-Af Amer) > 60 02/03/17 07:00 POC Glucose (mg/dL) 228 mg/dL (65-110) H 02/03/17 07:27 Random Glucose 145 mg/dL (70-110) H 02/03/17 07:00 Hemoglobin A1c 9.4 % (4.2-6.5) H 02/02/17 12:46 Calcium 8.8 mg/dL (8.4-10.5) 02/03/17 07:00 Total Bilirubin 0.8 mg/dL (0.2-1.3) 02/03/17 07:00 AST 26 U/L (15-59) 02/03/17 07:00 ALT 19 U/L (7-56) 02/03/17 07:00 Alkaline Phosphatase 71 U/L (38-133) 02/03/17 07:00 Lactate Dehydrogenase 334 U/L (333-699) 02/02/17 19:14 Total Creatine Kinase 76 U/L (35-230) 02/02/17 19:14 Troponin I 1.26 ng/mL H* 02/02/17 19:14 Total Protein 7.1 g/dL (5.8-8.3) 02/03/17 07:00 Albumin 3.8 g/dL (3.0-4.8) 02/03/17 07:00 Globulin 3.3 gm/dL 02/03/17 07:00 Albumin/Globulin Ratio 1.2 (1.1-1.8) 02/03/17 07:00 Triglycerides 219 mg/dL (35-160) H 02/02/17 09:34 Cholesterol 167 mg/dL (130-200) 02/02/17 09:34 LDL Cholesterol Direct 102 mg/dL (0-129) 02/02/17 09:34 HDL Cholesterol 36 mg/dL (29-60) 02/02/17 09:34 TSH 3rd Generation 2.1 MIU/ml (0.46-4.68) 02/02/17 12:46 - Hospital Course Hospital Course: 56 yo male with PMH of CAD s/p PTCA, HTN, DM, HLD presented with left sided non - reproducible chest pain. EKG was NSR, trops elevated at 0.75, 1.14, 1.26. Cardiology was consulted and he was taken to cardiac cath. During the cardiac cath patient received 2 drug eluding stents of the proximal LAD and RCA. EF of 55-60%. Cardiology recommended cardiac rehabilitation, wt loss, daily asa and plavix for next year. Patient was doing well, denies chest pain, sob, no hemtoma on right wrist at site of sheath insertion. Discharge instruction, patient is to HOLD metformin for 4 DAYS, he can restart the medication on the following Tuesday. He is to follow up with PMD, Dr. Chaudhry on Wednesday 02/07 and follow up with cardiology, Dr. Moreno in 1 week. He is to start plavix 75mg daily the day after discharge and continue all home medication. Discharge diagnose is NSTEMI. Patient is aware of hospital course and diagnose. Discharge plan was discussed with him and family, he is in agreement. Discharge Exam - Head Exam Head Exam: ATRAUMATIC, NORMOCEPHALIC - Eye Exam Eye Exam: Normal appearance - Respiratory Exam Respiratory Exam: Clear to PA & Lateral, NORMAL BREATHING PATTERN, UNREMARKABLE. absent: Rales, Rhonchi, Wheezes, Respiratory Distress - Cardiovascular Exam Cardiovascular Exam: REGULAR RHYTHM. absent: Tachycardia, Diastolic murmur, Systolic Murmur - GI/Abdominal Exam GI & Abdominal Exam: Normal Bowel Sounds, Unremarkable. absent: Distended, Firm , Soft, Tenderness - Extremities Exam Extremities exam: normal inspection Additional comments: left arm: no hematoma, dressing is clean, dry, intact. - Neurological Exam Neurological exam: Alert, Oriented x3 - Skin Skin Exam: Dry, Intact, Normal Color, Warm Discharge Plan - Discharge Medications Prescriptions: Aspirin [Ecotrin] 81 mg PO DAILY #15 tablet. Clopidogrel [Plavix] 75 mg PO DAILY #15 tab - Follow Up Plan Condition: GOOD Disposition: HOME/ ROUTINE Instructions: Coronary Artery Disease (DC), Left Heart Catheterization (DC) Additional Instructions: Discharge instruction: - HOLD metformin for 4 DAYS, restart on wednesday 02/07. - follow up with PMD, Dr. Chaudhry on wednesday 02/07. - follow up with cardiology, Dr. Moreno in 1 week. New medications plavix 75mg daily starting tomorrow. Continue all home medication. Discharge diagnoses: NSTEMI Referrals: Rowdy Moreno MD [Staff Provider] -
== END 2017-02-03 12:51 | disposition home or self-care (01) | DRG 853 ==
LOC: ED 04:07 → OBSVTOIN 06:03 → ERH 06:03 → 2RNO 08:44 → 2RSO 17:05
PROVIDERS: ADMIT Internal Medicine; ATTEND Internal Medicine
PROC: 027135Z Dilation of Coronary Artery, Two Arteries with Two Drug-eluting Intraluminal Devices, Percutaneous Approach (ICD-10-PCS; principal; 2017-02-02)
PROC: 4A023N7 Measurement of Cardiac Sampling and Pressure, Left Heart, Percutaneous Approach (ICD-10-PCS; 2017-02-02)
PROC: B2051ZZ Plain Radiography of Left Heart using Low Osmolar Contrast (ICD-10-PCS; 2017-02-02)
PROC: B2011ZZ Plain Radiography of Multiple Coronary Arteries using Low Osmolar Contrast (ICD-10-PCS; 2017-02-02)
PROC: 3E033PZ Introduction of Platelet Inhibitor into Peripheral Vein, Percutaneous Approach (ICD-10-PCS; 2017-02-02)
DX: I21.4 Non-ST elevation (NSTEMI) myocardial infarction (principal); I42.9 Cardiomyopathy, unspecified; I25.110 Atherosclerotic heart disease of native coronary artery with unstable angina pectoris; I10 Essential (primary) hypertension; E78.5 Hyperlipidemia, unspecified; E11.9 Type 2 diabetes mellitus without complications; E66.9 Obesity, unspecified; Z68.35 Body mass index [BMI] 35.0-35.9, adult; Z98.61 Coronary angioplasty status; Z79.4 Long term (current) use of insulin; Z79.82 Long term (current) use of aspirin; Z87.891 Personal history of nicotine dependence

== ENCOUNTER 2017-02-12 23:35 | Observation (INO) | payer MEDICAID ==
[2017-02-12 23:47] VITALS: BMI 34.7
--- NOTE | 2017-02-13 00:14 | ED PDOC ---
Arrival/HPI - General Chief Complaint: GI Problem Time Seen by Provider: 02/12/17 23:59 Historian: Patient - History of Present Illness Narrative History of Present Illness (Text): 02/13/17 00:11 Kolby Castañeda is a 56 year old male, whose past medical history includes CAD s/p PTCA, hypertension, diabetes, and hyperlipidemia, who presents to the Emergency department complaining of nausea and vomiting tonight. Patient also complaining of some mild abdominal pain. Patient denies any fever, chills, chest pain, shortness of breath, diarrhea, urinary symptoms, back pain, neck pain, headache, dizziness, or any other complaints. PMD: Dr. Chaudhry Time/Duration: Other (today) Symptom Onset: Gradual Symptom Course: Unchanged Activities at Onset: Rest, Light Context: Home Past Medical History - Provider Review Nursing Documentation Reviewed: Yes - Infectious Disease Hx of Infectious Diseases: None - Cardiac Hx Hypertension: Yes - Pulmonary Hx Respiratory Disorders: No - Neurological Hx Neurological Disorder: No - HEENT Other/Comment: Chronic Left ear condition, missing left TM. - Renal Hx Renal Disorder: No - Endocrine/Metabolic Hx Diabetes Mellitus Type 1: Yes Hx Diabetes Mellitus Type 2: Yes - Hematological/Oncological Hx Blood Disorders: No - Integumentary Hx Dermatological Disorder: No - Musculoskeletal/Rheumatological Hx Musculoskeletal Disorders: No Hx Falls: No - Gastrointestinal Hx Gastrointestinal Disorders: Yes - Genitourinary/Gynecological Hx Genitourinary Disorders: No - Psychiatric Hx Psychophysiologic Disorder: No Hx Substance Use: No - Surgical History Hx Cholecystectomy: Yes Hx Coronary Stent: Yes ([id number]) Other/Comment: cyst on back - Anesthesia Hx Anesthesia: No - Suicidal Assessment Feels Threatened In Home Enviroment: No Family/Social History - Physician Review Nursing Documentation Reviewed: Yes Family/Social History: No Known Family HX Smoking Status: Never Smoked Hx Alcohol Use: Yes (social) Frequency of alcohol use: Socially Hx Substance Use: No Hx Substance Use Treatment: No Allergies/Home Meds Allergies/Adverse Reactions: Allergies No Known Allergies Allergy (Verified 02/12/17 23:47) Home Medications: Home Meds Medication Instructions Recorded Confirmed Canagliflozin [Invokana] 100 mg PO DAILY 11/30/16 02/12/17 Cetirizine HCl [Wal-Zyr] 10 mg PO DAILY 11/30/16 02/12/17 Fenofibrate [Triglide] 160 mg PO DAILY 11/30/16 02/12/17 Folic Acid 400 mg PO BID 11/30/16 02/12/17 Insulin Glargine, Recombina 50 unit SC HS 11/30/16 02/12/17 [Lantus] Insulin Lispro [humALOG] 18 units SC TID 11/30/16 02/12/17 Losartan [Cozaar] 100 mg PO DAILY 11/30/16 02/12/17 Metoprolol Succinate [Toprol XL] 25 mg PO BID 11/30/16 02/12/17 Multivit-Min/FA/Lycopen/Lutein 1 each PO DAILY 11/30/16 02/12/17 [Centrum Silver Tablet] Omeprazole 40 mg PO DAILY 11/30/16 02/12/17 Pravastatin Sodium [Pravachol] 80 mg PO DAILY 11/30/16 02/12/17 metFORMIN [glucOPHAGE] 500 mg PO BID 11/30/16 02/12/17 Review of Systems - Physician Review All systems were reviewed & negative as marked: Yes - Review of Systems Constitutional: Normal. absent: Fevers Eyes: Normal ENT: Normal Respiratory: Normal. absent: SOB, Cough Cardiovascular: Normal. absent: Chest Pain Gastrointestinal: Abdominal Pain, Nausea, Vomiting. absent: Diarrhea Genitourinary Male: Normal. absent: Dysuria, Frequency, Hematuria, Urinary Output Changes Musculoskeletal: Normal. absent: Back Pain, Neck Pain Skin: Normal. absent: Rash Neurological: Normal. absent: Headache, Dizziness Endocrine: Normal Hemo/Lymphatic: Normal Psychiatric: Normal Physical Exam Vital Signs Reviewed: Yes Vital Signs Temp Pulse Resp BP Pulse Ox 02/13/17 04:02 107 H 18 129/80 98 02/13/17 03:03 97 H 18 127/60 98 02/13/17 01:27 106 H 18 104/57 L 99 02/12/17 23:52 98.6 F 109 H 16 114/77 100 Temperature: Afebrile Blood Pressure: Normal Pulse: Regular Respiratory Rate: Normal Appearance: Positive for: Well-Appearing, Non-Toxic, Comfortable Pain Distress: None Mental Status: Positive for: Alert and Oriented X 3 - Systems Exam Head: Present: Atraumatic, Normocephalic Pupils: Present: PERRL Extroacular Muscles: Present: EOMI Conjunctiva: Present: Normal Mouth: Present: Moist Mucous Membranes Neck: Present: Normal Range of Motion Respiratory/Chest: Present: Clear to Auscultation, Good Air Exchange. No: Respiratory Distress, Accessory Muscle Use Cardiovascular: Present: Regular Rate and Rhythm, Normal S1, S2. No: Murmurs Abdomen: Present: Normal Bowel Sounds. No: Tenderness, Distention, Peritoneal Signs Back: Present: Normal Inspection Upper Extremity: Present: Normal Inspection. No: Cyanosis, Edema Lower Extremity: Present: Normal Inspection. No: Edema Neurological: Present: GCS=15, CN II-XII Intact, Speech Normal Skin: Present: Warm, Dry, Normal Color. No: Rashes Psychiatric: Present: Alert, Oriented x 3, Normal Insight, Normal Concentration Medical Decision Making ED Course and Treatment: 02/13/17 00:11 Impression: 56 year old male complaining of nausea, vomiting, and mild abdominal pain tonight. Differential Diagnosis include but are not limited to: dehydration vs. gastritis Plan: -- EKG -- Labs, lipase, amylase, cardiac enzymes -- Urinalysis -- IV fluids -- Zofran -- Reassess and disposition Prior Visits: Notes and results from previous visits were reviewed. On 02/02/2017, pt was seen in the ED for left-sided chest pain. Pt was admitted to the hospital for further evaluation. Progress Notes: Reviewed EKG, sinus tachycardia at 105 bpm. Occasional PVC. No acute ischemia. 02/13/17 01:59 Multiple calls placed to Dr. Jones, who is covering for pt's PMD. No call back. Will place on hospitalist service. Case discussed with medical grade shoemaker, who is aware and agrees with plan. Case discussed with Dr. Jama, who is aware and agrees with plan. Accepts pt in to hospitalist service. Pt will go to Telemetry observation for dehydration. Pt is no acute distress. Discussed results and hospital observation plan with pt and family, who are aware and verbalize understanding. 02/13/17 19:53 - Lab Interpretations Lab Results: 02/13/17 00:09 02/13/17 00:09 Lab Results 02/13/17 00:09: WBC 14.3 H D, RBC 5.27, Hgb 12.0 L, Hct 38.2 L, MCV 72.5 L, MCH 22.8 L, MCHC 31.4, RDW 18.7 H, Plt Count 332, MPV 10.9, Gran % 80.8 H, Lymph % ( Auto) 11.9 L, [place] % (Auto) 7.1 H, Eos % (Auto) 0.1 L, Baso % (Auto) 0.1, Gran # 11.52 H, Lymph # 1.7, [place] # 1.0 H, Eos # 0.0, Baso # 0.02, Sodium 139, Potassium 4.7, Chloride 97 L, Carbon Dioxide 22, Anion Gap 25 H, BUN 42 H, Creatinine 1.4, Est GFR ( Amer) > 60, Est GFR (Non-Af Amer) 53, Random Glucose 242 H, Calcium 10.1, Total Bilirubin 1.1, AST 28, ALT 20, Alkaline Phosphatase 87, Lactate Dehydrogenase 313 L, Total Creatine Kinase 79, Troponin I 0.03 D, Total Protein 8.7 H, Albumin 4.7, Globulin 4.0, Albumin/Globulin Ratio 1.2, Amylase 101, Lipase 180 I have reviewed the lab results: Yes - EKG Interpretation Interpreted by ED Physician: Yes Type: 12 lead EKG - Medication Orders Current Medication Orders: Aspirin (Ecotrin) 81 mg PO DAILY [facility] Last Admin: 02/13/17 10:32 Dose: 81 MG Atorvastatin Calcium (Lipitor) 20 mg PO DIN [facility] Last Admin: 02/13/17 17:19 Dose: 20 MG Clopidogrel Bisulfate (Plavix) 75 mg PO DAILY [facility] Last Admin: 02/13/17 10:31 Dose: 75 MG Enoxaparin Sodium (Lovenox) 40 mg SC DAILY [facility] PRN Reason: Protocol Last Admin: 02/13/17 10:32 Dose: 40 MG Protocol for PTT Monitoring Document 02/13/17 10:32 TELOL (Rec: 02/13/17 10:33 TELOL [id number]) Protocol Protocol for PTT Monitoring Following clinical pathway protocol (regime/therapy) Subcutaneous Administrations Document 02/13/17 10:32 TELOL (Rec: 02/13/17 10:33 TELOL [id number]) Injection Site MAR Injection Site Right Abdomen Charges for Administration # of Subcutaneous Administrations 1 Fenofibrate (Tricor) 145 mg PO DAILY [facility] Last Admin: 02/13/17 10:32 Dose: 145 MG Sodium Chloride (Sodium Chloride 0.9%) 1,000 mls @ 100 mls/hr IV .Q10H [facility] Last Admin: 02/13/17 16:36 Dose: 100 MLS/HR eMAR Start Stop Document 02/13/17 16:36 TELOL (Rec: 02/13/17 16:36 TELOL [id number] ) Intravenous Solution Start Date 02/13/17 Start Time 16:36 Insulin Human Lispro (Humalog Med) 0 units SC ACHS [facility] PRN Reason: Protocol Last Admin: 02/13/17 17:19 Dose: Not Given Non-Admin Reason: Patient Refused Losartan Potassium (Cozaar) 100 mg PO DAILY [facility] Last Admin: 02/13/17 10:32 Dose: 100 MG Metformin HCl (Glucophage) 500 mg PO BID [facility] Last Admin: 02/13/17 10:32 Dose: 500 MG Metoprolol Succinate (Toprol Xl) 25 mg PO BID [facility] Last Admin: 02/13/17 17:19 Dose: 25 MG Non-Formulary Medication (Canagliflozin [Invokana]) 100 mg PO DAILY [facility] Last Admin: 02/13/17 10:33 Dose: Non-Formulary Medication (Multivit-Min/Fa/Lycopen/Lutein [Centrum Silver Tablet] ) 1 each PO DAILY [facility] Last Admin: 02/13/17 10:32 Dose: Non-Formulary Medication (Folic Acid [Folic Acid]) 400 mcg PO DAILY [facility] Last Admin: 02/13/17 10:33 Dose: Ondansetron HCl (Zofran Inj) 4 mg IVP Q6H PRN PRN Reason: Nausea/Vomiting Last Admin: 02/13/17 16:42 Dose: 4 MG IVP Administration Document 02/13/17 16:42 TELOL (Rec: 02/13/17 16:42 TELOL [id number] ) Charges for Administration # of IVP Administrations 1 Pantoprazole Sodium (Protonix Inj) 40 mg IVP DAILY [facility] Last Admin: 02/13/17 10:32 Dose: 40 MG IVP Administration Document 02/13/17 10:32 TELOL (Rec: 02/13/17 10:32 TELOL [facility] [id number]) Charges for Administration # of IVP Administrations 1 Discontinued Medications Sodium Chloride (Sodium Chloride 0.9%) 1,000 mls @ 100 mls/hr IV .Q10H STA Stop: 02/13/17 10:15 Last Admin: 02/13/17 00:21 Dose: 100 MLS/HR eMAR Start Stop Document 02/13/17 00:21 SB (Rec: 02/13/17 00:21 SB [facility] [id number]) Intravenous Solution Start Date 02/13/17 Start Time 00:21 End Date 02/13/17 Non-Formulary Medication (Folic Acid [Folic Acid]) 400 mg PO BID [facility] Ondansetron HCl (Zofran Inj) 4 mg IVP STAT STA Stop: 02/13/17 00:17 Last Admin: 02/13/17 00:25 Dose: 4 MG IVP Administration Document 02/13/17 00:25 SB (Rec: 02/13/17 00:25 SB [facility] [id number]) Charges for Administration # of IVP Administrations 1 Pantoprazole Sodium (Protonix Inj) 40 mg IVP ONCE STA Stop: 02/13/17 00:58 Last Admin: 02/13/17 01:36 Dose: 40 MG IVP Administration Document 02/13/17 01:36 SB (Rec: 02/13/17 01:36 SB [facility] [id number]) Charges for Administration # of IVP Administrations 1 Sucralfate (Carafate Oral Susp) 1 gm PO STAT STA Stop: 02/13/17 00:59 Last Admin: 02/13/17 01:36 Dose: 1 GM - Jaspreetibe Statement The provider has reviewed the documentation as recorded by the Yahaira Herring Provider Attestation: All medical record entries made by the Yahaira were at my direction and personally dictated by me. I have reviewed the chart and agree that the record accurately reflects my personal performance of the history, physical exam, medical decision making, and the department course for this patient. I have also personally directed, reviewed, and agree with the discharge instructions and disposition. Disposition/Present on Arrival - Present on Arrival Any Indicators Present on Arrival: No History of DVT/PE: No History of Uncontrolled Diabetes: Yes Urinary Catheter: No History of Decub. Ulcer: No History Surgical Site Infection Following: None - Disposition Have Diagnosis and Disposition been Completed?: Yes Diagnosis: Dehydration Disposition: HOSPITALIZED Disposition Time: 02:00 Condition: FAIR
[2017-02-13] MEDS ORDERED: Sodium Chloride 0.9% 1,000 ML IV STA (00:16)
[2017-02-13 00:28] LABS: ADD MANUAL DIFF? NO
[2017-02-13 00:34] LABS: BASO # 0.02 K/mm3 (0.0-2.0); BASO % 0.1 % (0.0-3.0); EOS % 0.1 % (1.5-5.0); GRAN # 11.52 (1.4-6.5); GRAN % 80.8 % (50.0-68.0); HEMATOCRIT 38.2 % (42.0-52.0); LYMPH # 1.7 (1.2-3.4); LYMPH % 11.9 % (22.0-35.0); MEAN CELL VOLUME 72.5 fL (80.0-105.0); MEAN CORPUSCULAR HEMOGLOBIN 22.8 pg (25.0-35.0); MEAN CORPUSCULAR HGB CONC 31.4 g/dl (31.0-37.0); MEAN PLATELET VOLUME 10.9 fl (7.0-11.0); MONO % 7.1 % (1.0-6.0); PLATELET COUNT 332 10^3/uL (120.0-450.0); RED CELL DISTRIBUTION WIDTH 18.7 % (11.5-14.5); WHITE BLOOD COUNT 14.3 10^3/ul (4.5-11.0)
[2017-02-13 00:44] LABS: ALB/GLOB RATIO 1.2 (1.1-1.8); ALKALINE PHOSPHATASE 87 U/L (38-133); ALT/SGPT 20 U/L (7-56); AMYLASE 101 U/L (35-125); AST/SGOT 28 U/L (15-59); BILIRUBIN,TOTAL 1.1 mg/dL (0.2-1.3); BLOOD UREA NITROGEN 42 mg/dL (7-21); CALCIUM 10.1 mg/dL (8.4-10.5); CARBON DIOXIDE 22 mmol/L (21-33); CHLORIDE 97 mmol/L (98-107); GFR AFRICAN-AMERICAN > 60; GLUCOSE,RANDOM 242 mg/dL (70-110); LIPASE 180 U/L (23-300); POTASSIUM 4.7 mmol/L (3.6-5.0); SODIUM 139 mmol/L (132-148); TOTAL PROTEIN 8.7 g/dL (5.8-8.3)
[2017-02-13 00:55] LABS: TROPONIN I 0.03 ng/mL
[2017-02-13] MEDS ORDERED: Sucralfate 1 gm/10 ml Oral Susp UD PO STA (00:58)
--- NOTE | 2017-02-13 02:38 | CP.PCM.HP ---
<Timothy Chancewin - Last Filed: 02/13/17 02:57> History of Present Illness - History of Present Illness History of Present Illness: cc: Nausea/Vomiting HPI: Patient is a 56yo male with past medical history of DM2, NSTEMI s/p PTCA, HTN, HLD that presents c/o nausea and nonbloody, bilious vomiting since Tuesday afternoon. Patient reports that he has been vomiting excessively (over 5 times a day) and has had a lack of appetite. He denies diarrhea, eating questionable food or being exposed to sick contacts. He states that he has experienced something similar in the past and was told he had gastroenteritis. Patient states nothing appeared to make it better or worse and he has not tried anything at home. Denies chest pain, palpitations, SOB, abdominal pain, fever, chills, cough, focal weakness, numbness, tingling, dysuria, frequency, urgency, melena, hematochezia, hematemesis. 12point ROS as per HPI above, otherwise negative PMHx: NSTEMI s/p PTCA, CAD, HTN, DM2, HLD PSHx: Left ear drum repair (~2yrs ago); Cardiac cath Social Hx: Former smoker; Drinks socially; Denies illicit drug use Family Hx: Father: [place] at 76yo; Mother: DM2, CAD Medications: reviewed, as per record Allergies: NKDA Present on Admission - Present on Admission Any Indicators Present on Admission: No Past Patient History - Infectious Disease Hx of Infectious Diseases: None - Past Social History Smoking Status: Never Smoked - CARDIAC Hx Hypertension: Yes - PULMONARY Hx Respiratory Disorders: No - NEUROLOGICAL Hx Neurological Disorder: No - HEENT Other/Comment: Chronic Left ear condition, missing left TM. - RENAL Hx Chronic Kidney Disease: No - ENDOCRINE/METABOLIC Hx Diabetes Mellitus Type 1: Yes Hx Diabetes Mellitus Type 2: Yes - HEMATOLOGICAL/ONCOLOGICAL Hx Blood Disorders: No - INTEGUMENTARY Hx Dermatological Problems: No - MUSCULOSKELETAL/RHEUMATOLOGICAL Hx Musculoskeletal Disorders: No Hx Falls: No - GASTROINTESTINAL Hx Gastrointestinal Disorders: Yes - GENITOURINARY/GYNECOLOGICAL Hx Genitourinary Disorders: No - PSYCHIATRIC Hx Psychophysiologic Disorder: No Hx Substance Use: No - SURGICAL HISTORY Hx Cholecystectomy: Yes Hx Coronary Stent: Yes ([id number]) Other/Comment: cyst on back - ANESTHESIA Hx Anesthesia: No Meds Allergies/Adverse Reactions: Allergies Allergy/AdvReac Type Severity Reaction Status Date / Time No Known Allergies Allergy Verified 02/12/17 23:47 Physical Exam - Constitutional Appears: Non-toxic, No Acute Distress - Head Exam Head Exam: ATRAUMATIC, NORMAL INSPECTION, NORMOCEPHALIC - Eye Exam Eye Exam: EOMI, PERRL - ENT Exam ENT Exam: Mucous Membranes Moist - Neck Exam Neck exam: Negative for: Lymphadenopathy, Tenderness, Thyromegaly - Respiratory Exam Respiratory Exam: Clear to Auscultation Bilateral. absent: Rales, Rhonchi, Wheezes - Cardiovascular Exam Cardiovascular Exam: RRR, +S1, +S2. absent: Gallop, JVD, Rubs, Systolic Murmur - GI/Abdominal Exam GI & Abdominal Exam: Soft. absent: Distended, Firm, Guarding, Rebound, Rigid, Tenderness - Extremities Exam Extremities exam: Positive for: normal inspection. Negative for: calf tenderness, pedal edema, tenderness - Neurological Exam Neurological exam: Alert, CN II-XII Intact, Oriented x3 - Psychiatric Exam Psychiatric exam: Normal Affect, Normal Mood - Skin Skin Exam: Dry, Intact, Normal Color, Warm Results - Vital Signs Recent Vital Signs: Last Vital Signs Temp 98.6 F 02/12/17 23:52 Pulse 106 H 02/13/17 01:27 Resp 18 02/13/17 01:27 BP 104/57 L 02/13/17 01:27 Pulse Ox 99 02/13/17 01:27 - Labs Result Diagrams: 02/13/17 00:09 02/13/17 00:09 Labs: Laboratory Results - last 24 hr 02/13/17 00:09 WBC 14.3 H D RBC 5.27 Hgb 12.0 L Hct 38.2 L MCV 72.5 L MCH 22.8 L MCHC 31.4 RDW 18.7 H Plt Count 332 MPV 10.9 Gran % 80.8 H Lymph % (Auto) 11.9 L [place] % (Auto) 7.1 H Eos % (Auto) 0.1 L Baso % (Auto) 0.1 Gran # 11.52 H Lymph # 1.7 [place] # 1.0 H Eos # 0.0 Baso # 0.02 Sodium 139 Potassium 4.7 Chloride 97 L Carbon Dioxide 22 Anion Gap 25 H BUN 42 H Creatinine 1.4 Est GFR ( Amer) > 60 Est GFR (Non-Af Amer) 53 Random Glucose 242 H Calcium 10.1 Total Bilirubin 1.1 AST 28 ALT 20 Alkaline Phosphatase 87 Lactate Dehydrogenase 313 L Total Creatine Kinase 79 Troponin I 0.03 D Total Protein 8.7 H Albumin 4.7 Globulin 4.0 Albumin/Globulin Ratio 1.2 Amylase 101 Lipase 180 Assessment & Plan - Assessment and Plan (Free Text) Assessment: 56yo male with history of DM2, NSTEMI s/p PTCA, HTN, HLD presents c/o nausea and bilious vomiting for past 2 days Plan: 1. Nausea/Vomiting likely 2/2 Gastroenteritis -IVF hydration with NS @ 100/hr -Zofran PRN for nausea -EKG reviewed; no acute ST-T wave changes -Troponin negative x1, will trend to rule out cardiac event -Lipase within normal limits -UA pending 2. CAD -Continue ASA 81 -Continue plavix -Continue lipitor -Continue metoprolol 3. Diabetes mellitus type 2 -Continue metformin -Continue invokana -Humalog medium dose ISS -Fingersticks ACHS -Consistent carb diet 4. Hypertension -Continue losartan 5. Hyperlipidemia -Continue lipitor 6. GI/DVT prophylaxis -Lovenox -Protonix Patient seen and case discussed with attending, Dr. Jama - Date & Time Date: 02/13/17 Time: 02:39 <Evita GANNON,Justin - Last Filed: 02/14/17 07:47> Results - Vital Signs Recent Vital Signs: Last Vital Signs Temp 98.2 F 02/14/17 05:51 Pulse 81 02/14/17 05:51 Resp 20 02/14/17 05:51 BP 137/64 02/14/17 05:51 Pulse Ox 97 02/14/17 05:51 - Labs Result Diagrams: 02/13/17 10:32 02/13/17 10:32 Labs: Laboratory Results - last 24 hr 02/13/17 02/13/17 02/13/17 08:31 10:32 16:57 WBC 11.6 H RBC 4.92 Hgb 11.2 L Hct 35.5 L MCV 72.2 L MCH 22.8 L MCHC 31.5 RDW 18.6 H Plt Count 312 MPV 10.8 Sodium 138 Potassium 4.6 Chloride 102 Carbon Dioxide 22 Anion Gap 19 BUN 34 H Creatinine 1.1 Est GFR ( Amer) > 60 Est GFR (Non-Af Amer) > 60 POC Glucose (mg/dL) 142 H 162 H Random Glucose 180 H Calcium 9.0 Troponin I 0.02 D 02/14/17 07:19 WBC RBC Hgb Hct MCV MCH MCHC RDW Plt Count MPV Sodium Potassium Chloride Carbon Dioxide Anion Gap BUN Creatinine Est GFR ( Amer) Est GFR (Non-Af Amer) POC Glucose (mg/dL) 136 H Random Glucose Calcium Troponin I Attending/Attestation - Attestation I have personally seen and examined this patient.: Yes I have fully participated in the care of the patient.: Yes I have reviewed all pertinent clinical information: Yes Notes (Text): 02/14/17 07:46 -I agree with the above H&P completed by the resident physician. Briefly, the patient is a 56 yo man with recent PCI who presents with N/V and dehydration likely due to viral gastroenteritis. We will hydrate with IVF's and use PRN IV Zofran as needed. Also will check serial trop's and EKG's.
[2017-02-13 03:09] LABS: URINE APPEARANCE CLEAR (CLEAR); URINE BILIRUBIN NEGATIVE (NEGATIVE); URINE BLOOD NEGATIVE (NEGATIVE); URINE COLOR YELLOW (YELLOW); URINE GLUCOSE (UA) >=1000 mg/dL (NEGATIVE); URINE KETONE 15 mg/dL (NEGATIVE); URINE LEUKOCYTE ESTERASE NEGATIVE Leu/uL (NEGATIVE); URINE PROTEIN NEGATIVE mg/dL (<30 mg/dL); URINE UROBILINOGEN 0.2 E.U./dL (<1 E.U./dL)
[2017-02-13] MEDS: Insulin Lispro (humaLOG) MEDIUM Coverage SC SCH ×4 (08:32→22:02)
--- NOTE | 2017-02-13 08:42 | CARD ---
APPROVED REPORT EKG Measurement Heart [id number] <Conclusion> Sinus tachycardia with occasional premature ventricular complexes Otherwise normal ECG
[2017-02-13] MEDS: Metoprolol Succinate 25 mg XL Tab PO SCH ×2 (10:32→17:19)
[2017-02-13] MEDS: Enoxaparin 40 mg Syringe SC SCH (10:32)
[2017-02-13] MEDS: Non Formulary Medication (Multivit-Min/Fa/Lycopen/Lutein [Centrum Silver Tablet] 1 EACH) PO SCH (10:32)
[2017-02-13] MEDS: CANAGLIFLOZIN 100 MG PO SCH (10:33)
[2017-02-13] MEDS: FOLIC ACID 400 MCG PO SCH (10:33)
[2017-02-13 10:54] LABS: BLOOD UREA NITROGEN 34 mg/dL (7-21); CARBON DIOXIDE 22 mmol/L (21-33); CHLORIDE 102 mmol/L (98-107); GFR AFRICAN-AMERICAN > 60; GLUCOSE,RANDOM 180 mg/dL (70-110); HEMATOCRIT 35.5 % (42.0-52.0); MEAN CELL VOLUME 72.2 fL (80.0-105.0); MEAN CORPUSCULAR HEMOGLOBIN 22.8 pg (25.0-35.0); MEAN CORPUSCULAR HGB CONC 31.5 g/dl (31.0-37.0); MEAN PLATELET VOLUME 10.8 fl (7.0-11.0); POTASSIUM 4.6 mmol/L (3.6-5.0); RED CELL DISTRIBUTION WIDTH 18.6 % (11.5-14.5); SODIUM 138 mmol/L (132-148); WHITE BLOOD COUNT 11.6 10^3/ul (4.5-11.0)
[2017-02-13 11:06] LABS: TROPONIN I 0.02 ng/mL
[2017-02-13] MEDS: Sodium Chloride 0.9% 1,000 ML IV SCH (16:36)
[2017-02-14] MEDS: Sodium Chloride 0.9% 1,000 ML IV SCH (01:36)
[2017-02-14 05:52] VITALS: O2SAT 97
[2017-02-14] MEDS: Insulin Lispro (humaLOG) MEDIUM Coverage SC SCH ×2 (07:38→12:19)
[2017-02-14 08:27] LABS: ADD MANUAL DIFF? NO
[2017-02-14 08:30] LABS: BASO # 0.02 K/mm3 (0.0-2.0); BASO % 0.3 % (0.0-3.0); EOS # 0.2 (0.0-0.7); EOS % 2.8 % (1.5-5.0); GRAN # 4.28 (1.4-6.5); GRAN % 59.9 % (50.0-68.0); HEMATOCRIT 35.9 % (42.0-52.0); LYMPH # 1.8 (1.2-3.4); LYMPH % 25.4 % (22.0-35.0); MEAN CELL VOLUME 73.9 fL (80.0-105.0); MEAN CORPUSCULAR HEMOGLOBIN 22.6 pg (25.0-35.0); MEAN CORPUSCULAR HGB CONC 30.6 g/dl (31.0-37.0); MEAN PLATELET VOLUME 11.3 fl (7.0-11.0); MONO # 0.8 (0.1-0.6); MONO % 11.6 % (1.0-6.0); PLATELET COUNT 291 10^3/uL (120.0-450.0); RED CELL DISTRIBUTION WIDTH 18.7 % (11.5-14.5); WHITE BLOOD COUNT 7.1 10^3/ul (4.5-11.0)
[2017-02-14 08:42] LABS: ALB/GLOB RATIO 1.2 (1.1-1.8); ALKALINE PHOSPHATASE 64 U/L (38-133); ALT/SGPT 34 U/L (7-56); AST/SGOT 40 U/L (15-59); BILIRUBIN,TOTAL 0.9 mg/dL (0.2-1.3); BLOOD UREA NITROGEN 27 mg/dL (7-21); CALCIUM 8.6 mg/dL (8.4-10.5); CARBON DIOXIDE 25 mmol/L (21-33); CHLORIDE 104 mmol/L (95-110); GFR AFRICAN-AMERICAN > 60; GLUCOSE,RANDOM 154 mg/dL (70-110); MAGNESIUM 2.3 mg/dL (1.7-2.2); PHOSPHOROUS 2.5 mg/dL (2.5-4.5); POTASSIUM 4.5 mmol/L (3.6-5.0); SODIUM 139 mmol/L (132-148); TOTAL PROTEIN 7.2 g/dL (5.8-8.3)
[2017-02-14 09:09] LABS: TROPONIN I 0.04 ng/mL
[2017-02-14] MEDS: CANAGLIFLOZIN 100 MG PO SCH ×2 (09:20→09:26)
[2017-02-14] MEDS: Metoprolol Succinate 25 mg XL Tab PO SCH (09:21)
[2017-02-14] MEDS: Enoxaparin 40 mg Syringe SC SCH (09:22)
[2017-02-14] MEDS: Non Formulary Medication (Multivit-Min/Fa/Lycopen/Lutein [Centrum Silver Tablet] 1 EACH) PO SCH (09:22)
[2017-02-14] MEDS: FOLIC ACID 400 MCG PO SCH (09:23)
[2017-02-14] MEDS ORDERED: CANAGLIFLOZIN 100 MG PO SCH (10:00)
[2017-02-14] MEDS ORDERED: Sodium Chloride 0.9% 1,000 ML IV SCH (10:29)
[2017-02-14 13:30] VITALS: BP 102/58; PULSE 76; RESP 19; TEMP 97.9
--- NOTE | 2017-02-14 15:18 | CP.PCM.DIS ---
<Analia Tanner - Last Filed: 02/16/17 14:42> Provider - Provider Date of Admission: 02/13/17 01:49 Attending physician: Anant Chaudhry MD Primary care physician: Anant Chaudhry MD Time Spent in preparation of Discharge (in minutes): 35 Hospital Course - Lab Results Lab Results: Most Recent Lab Values WBC 7.1 10^3/ul (4.5-11.0) D 02/14/17 08:20 RBC 4.86 10^6/uL (3.5-6.1) 02/14/17 08:20 Hgb 11.0 gm/dL (14.0-18.0) L 02/14/17 08:20 Hct 35.9 % (42.0-52.0) L 02/14/17 08:20 MCV 73.9 fL (80.0-105.0) L 02/14/17 08:20 MCH 22.6 pg (25.0-35.0) L 02/14/17 08:20 MCHC 30.6 g/dl (31.0-37.0) L 02/14/17 08:20 RDW 18.7 % (11.5-14.5) H 02/14/17 08:20 Plt Count 291 10^3/uL (120.0-450.0) 02/14/17 08:20 MPV 11.3 fl (7.0-11.0) H 02/14/17 08:20 Gran % 59.9 % (50.0-68.0) 02/14/17 08:20 Lymph % (Auto) 25.4 % (22.0-35.0) 02/14/17 08:20 [place] % (Auto) 11.6 % (1.0-6.0) H 02/14/17 08:20 Eos % (Auto) 2.8 % (1.5-5.0) 02/14/17 08:20 Baso % (Auto) 0.3 % (0.0-3.0) 02/14/17 08:20 Gran # 4.28 (1.4-6.5) 02/14/17 08:20 Lymph # 1.8 (1.2-3.4) 02/14/17 08:20 [place] # 0.8 (0.1-0.6) H 02/14/17 08:20 Eos # 0.2 (0.0-0.7) 02/14/17 08:20 Baso # 0.02 K/mm3 (0.0-2.0) 02/14/17 08:20 Sodium 139 mmol/L (132-148) 02/14/17 08:20 Potassium 4.5 mmol/L (3.6-5.0) 02/14/17 08:20 Chloride 104 mmol/L (95-110) 02/14/17 08:20 Carbon Dioxide 25 mmol/L (21-33) 02/14/17 08:20 Anion Gap 15 (10-20) 02/14/17 08:20 BUN 27 mg/dL (7-21) H 02/14/17 08:20 Creatinine 0.9 mg/dL (0.5-1.4) 02/14/17 08:20 Est GFR ( Amer) > 60 02/14/17 08:20 Est GFR (Non-Af Amer) > 60 02/14/17 08:20 POC Glucose (mg/dL) 225 mg/dL (65-110) H 02/14/17 12:02 Random Glucose 154 mg/dL (70-110) H 02/14/17 08:20 Calcium 8.6 mg/dL (8.4-10.5) 02/14/17 08:20 Phosphorus 2.5 mg/dL (2.5-4.5) 02/14/17 08:20 Magnesium 2.3 mg/dL (1.7-2.2) H 02/14/17 08:20 Total Bilirubin 0.9 mg/dL (0.2-1.3) 02/14/17 08:20 AST 40 U/L (15-59) 02/14/17 08:20 ALT 34 U/L (7-56) 02/14/17 08:20 Alkaline Phosphatase 64 U/L (38-133) 02/14/17 08:20 Lactate Dehydrogenase 352 U/L (333-699) 02/14/17 08:20 Total Creatine Kinase 57 U/L (35-230) 02/14/17 08:20 Troponin I 0.04 ng/mL D 02/14/17 08:20 Total Protein 7.2 g/dL (5.8-8.3) 02/14/17 08:20 Albumin 3.9 g/dL (3.0-4.8) 02/14/17 08:20 Globulin 3.3 gm/dL 02/14/17 08:20 Albumin/Globulin Ratio 1.2 (1.1-1.8) 02/14/17 08:20 Amylase 101 U/L (35-125) 02/13/17 00:09 Lipase 180 U/L (23-300) 02/13/17 00:09 Urine Color Yellow (YELLOW) 02/13/17 02:45 Urine Appearance Clear (CLEAR) 02/13/17 02:45 Urine pH 6.0 (4.7-8.0) 02/13/17 02:45 Ur Specific [place] 1.015 (1.005-1.035) 02/13/17 02:45 Urine Protein Negative mg/dL (<30 mg/dL) 02/13/17 02:45 Urine Glucose (UA) >=1000 mg/dL (NEGATIVE) 02/13/17 02:45 Urine Ketones 15 mg/dL (NEGATIVE) H 02/13/17 02:45 Urine Blood Negative (NEGATIVE) 02/13/17 02:45 Urine Nitrate Negative (NEGATIVE) 02/13/17 02:45 Urine Bilirubin Negative (NEGATIVE) 02/13/17 02:45 Urine Urobilinogen 0.2 E.U./dL (<1 E.U./dL) 02/13/17 02:45 Ur Leukocyte Esterase Negative Luís/uL (NEGATIVE) 02/13/17 02:45 - Hospital Course Hospital Course: 56 yo male with past medical history of DM2, NSTEMI s/p PTCA, HTN, HLD that presents c/o nausea and nonbloody, bilious vomiting since Tuesday afternoon. [facility] Patient reported excessive vomiting and lack of appetite without diarrhea. He states that he has experienced something similar in the past and was told he had gastroenteritis. He was given IVF hydration with normal saline. EKG showed sinus tachy with occasional PVCs. Troponin were negative x 3. Pancreatic enzymes are within normal limits, UA is normal. Patient is doing better this morning. Denies nausea or vomiting. Discharge instructions are to follow up with Dr. Chaudhry in 1 week. Patient is to hold metformin for 3 days. Continue all other home medications. Discharge diagnoses are dehydration, gastroenteritis. Patient is aware of hospital course and diagnoses. Discharge plan was discussed with patient and his , they are in agreement. Discharge Exam - Head Exam Head Exam: ATRAUMATIC, NORMAL INSPECTION, NORMOCEPHALIC - Eye Exam Eye Exam: Normal appearance - ENT Exam ENT Exam: Mucous Membranes Moist - Respiratory Exam Respiratory Exam: Clear to PA & Lateral, NORMAL BREATHING PATTERN, UNREMARKABLE. absent: Decreased Breath Sounds, Rhonchi, Wheezes, Respiratory Distress - Cardiovascular Exam Cardiovascular Exam: REGULAR RHYTHM. absent: Tachycardia, Diastolic murmur, Systolic Murmur - GI/Abdominal Exam GI & Abdominal Exam: Normal Bowel Sounds, Soft, Unremarkable. absent: Distended , Firm, Guarding, Tenderness - Extremities Exam Extremities exam: normal inspection - Neurological Exam Neurological exam: Alert, Oriented x3 - Skin Skin Exam: Dry, Intact, Normal Color, Warm Discharge Plan - Follow Up Plan Condition: FAIR Disposition: HOME/ ROUTINE Instructions: Dehydration (DC), Heart Healthy Diet (DC), Meal Planning with Diabetes Exchanges (DC) Additional Instructions: Discharge instructions - follow up with Dr. Chaudhry in 1 week - if new symptoms occur return to nearest emergency department. - hold metformin for 3 days - cont all other home medications - may return to work on Discharge diagnoses - dehydration - gastroenteritis Referrals: Anant Chaudhry MD [Primary Care Provider] - <Anant Chaudhry - Last Filed: 02/22/17 09:05> Provider - Provider Date of Admission: 02/13/17 01:49 Attending physician: Anant Chaudhry MD Primary care physician: Anant Chaudhry MD Hospital Course - Lab Results Lab Results: Most Recent Lab Values WBC 7.1 10^3/ul (4.5-11.0) D 02/14/17 08:20 RBC 4.86 10^6/uL (3.5-6.1) 02/14/17 08:20 Hgb 11.0 gm/dL (14.0-18.0) L 02/14/17 08:20 Hct 35.9 % (42.0-52.0) L 02/14/17 08:20 MCV 73.9 fL (80.0-105.0) L 02/14/17 08:20 MCH 22.6 pg (25.0-35.0) L 02/14/17 08:20 MCHC 30.6 g/dl (31.0-37.0) L 02/14/17 08:20 RDW 18.7 % (11.5-14.5) H 02/14/17 08:20 Plt Count 291 10^3/uL (120.0-450.0) 02/14/17 08:20 MPV 11.3 fl (7.0-11.0) H 02/14/17 08:20 Gran % 59.9 % (50.0-68.0) 02/14/17 08:20 Lymph % (Auto) 25.4 % (22.0-35.0) 02/14/17 08:20 [place] % (Auto) 11.6 % (1.0-6.0) H 02/14/17 08:20 Eos % (Auto) 2.8 % (1.5-5.0) 02/14/17 08:20 Baso % (Auto) 0.3 % (0.0-3.0) 02/14/17 08:20 Gran # 4.28 (1.4-6.5) 02/14/17 08:20 Lymph # 1.8 (1.2-3.4) 02/14/17 08:20 [place] # 0.8 (0.1-0.6) H 02/14/17 08:20 Eos # 0.2 (0.0-0.7) 02/14/17 08:20 Baso # 0.02 K/mm3 (0.0-2.0) 02/14/17 08:20 Sodium 139 mmol/L (132-148) 02/14/17 08:20 Potassium 4.5 mmol/L (3.6-5.0) 02/14/17 08:20 Chloride 104 mmol/L (95-110) 02/14/17 08:20 Carbon Dioxide 25 mmol/L (21-33) 02/14/17 08:20 Anion Gap 15 (10-20) 02/14/17 08:20 BUN 27 mg/dL (7-21) H 02/14/17 08:20 Creatinine 0.9 mg/dL (0.5-1.4) 02/14/17 08:20 Est GFR ( Amer) > 60 02/14/17 08:20 Est GFR (Non-Af Amer) > 60 02/14/17 08:20 POC Glucose (mg/dL) 225 mg/dL (65-110) H 02/14/17 12:02 Random Glucose 154 mg/dL (70-110) H 02/14/17 08:20 Calcium 8.6 mg/dL (8.4-10.5) 02/14/17 08:20 Phosphorus 2.5 mg/dL (2.5-4.5) 02/14/17 08:20 Magnesium 2.3 mg/dL (1.7-2.2) H 02/14/17 08:20 Total Bilirubin 0.9 mg/dL (0.2-1.3) 02/14/17 08:20 AST 40 U/L (15-59) 02/14/17 08:20 ALT 34 U/L (7-56) 02/14/17 08:20 Alkaline Phosphatase 64 U/L (38-133) 02/14/17 08:20 Lactate Dehydrogenase 352 U/L (333-699) 02/14/17 08:20 Total Creatine Kinase 57 U/L (35-230) 02/14/17 08:20 Troponin I 0.04 ng/mL D 02/14/17 08:20 Total Protein 7.2 g/dL (5.8-8.3) 02/14/17 08:20 Albumin 3.9 g/dL (3.0-4.8) 02/14/17 08:20 Globulin 3.3 gm/dL 02/14/17 08:20 Albumin/Globulin Ratio 1.2 (1.1-1.8) 02/14/17 08:20 Amylase 101 U/L (35-125) 02/13/17 00:09 Lipase 180 U/L (23-300) 02/13/17 00:09 Urine Color Yellow (YELLOW) 02/13/17 02:45 Urine Appearance Clear (CLEAR) 02/13/17 02:45 Urine pH 6.0 (4.7-8.0) 02/13/17 02:45 Ur Specific [place] 1.015 (1.005-1.035) 02/13/17 02:45 Urine Protein Negative mg/dL (<30 mg/dL) 02/13/17 02:45 Urine Glucose (UA) >=1000 mg/dL (NEGATIVE) 02/13/17 02:45 Urine Ketones 15 mg/dL (NEGATIVE) H 02/13/17 02:45 Urine Blood Negative (NEGATIVE) 02/13/17 02:45 Urine Nitrate Negative (NEGATIVE) 02/13/17 02:45 Urine Bilirubin Negative (NEGATIVE) 02/13/17 02:45 Urine Urobilinogen 0.2 E.U./dL (<1 E.U./dL) 02/13/17 02:45 Ur Leukocyte Esterase Negative Luís/uL (NEGATIVE) 02/13/17 02:45 Attending/Attestation - Attestation I have personally seen and examined this patient.: Yes I have fully participated in the care of the patient.: Yes I have reviewed all pertinent clinical information, including history, physical exam and plan: Yes Notes (Text): 02/22/17 09:05 Medical record note made by the resident after discussion with my direction and input after the patient was personally seen and examined by me. I have reviewed the chart and agree that the record reflects my personal history, physical, data review and course for the patient
== END 2017-02-14 16:59 | disposition home or self-care (01) ==
LOC: ED 23:35 → ERH 02-13 01:49 → 2RSO 02-13 04:21
PROVIDERS: ADMIT Hospitalist; ATTEND Internal Medicine
DX: E86.0 Dehydration (principal); K52.9 Noninfective gastroenteritis and colitis, unspecified; I10 Essential (primary) hypertension; E78.5 Hyperlipidemia, unspecified; E11.9 Type 2 diabetes mellitus without complications; I25.10 Atherosclerotic heart disease of native coronary artery without angina pectoris; I25.2 Old myocardial infarction; Z79.4 Long term (current) use of insulin; Z95.5 Presence of coronary angioplasty implant and graft; Z87.891 Personal history of nicotine dependence; Z82.49 Family history of ischemic heart disease and other diseases of the circulatory system; Z83.3 Family history of diabetes mellitus
CPT/HCPCS: 36415; 80053; 81003; 82150; 82550; 82948; 83615; 83690; 83735; 84100; 84484; 85025; 85027; 93005; 96372; 96374; 96375; 96376; 99285; C9113; G0378; J1650; J2405; J7040

== ENCOUNTER 2017-10-10 07:26 | Day surgery (SDC) | payer MEDICAID ==
[2017-09-29 09:32] VITALS: BMI 35.0
--- NOTE | 2017-10-09 10:55 | HP ---
REASON FOR ADMISSION: Left heart catheterization, possible angioplasty. BRIEF CLINICAL HISTORY: This is a 57-year-old male with a past medical history significant for CAD, status post PTCA, plain balloon angioplasty in [address] Magallanes. He is status post PTCA of LAD and circumflex on 02/02/2017 when the patient presented after non-STEMI. The patient had recently a stress test that shows abnormal stress test, so patient is scheduled for PTCA. The patient denies any chest pain, but complained of mild shortness of breath. PAST MEDICAL HISTORY: Significant for coronary artery disease status post multiple stents, history of plain balloon angioplasty in [address] Jaime Magallanes, history of PTCA of LAD and RCA on 02/02/2017 after non-STEMI. History of diabetes, hypertension, and hyperlipidemia. SOCIAL HISTORY: Denies smoking. Denies any history of alcohol abuse. CURRENT MEDICATIONS: The patient is taking metformin 500 mg b.i.d., ranitidine 300 mg daily, Pravachol 80 mg daily, multivitamin 1 tablet daily, metoprolol succinate 250 mg twice a day, losartan 100 mg daily, insulin lispro, Humalog 18 units b.i.d., insulin glargine 50 units subcu at bedtime, folic acid 400 mg daily, fenofibrate 160 mg daily, Plavix 75 mg daily, aspirin 81 mg daily, Invokana 100 mg p.o. daily. ALLERGIES: NO KNOWN DRUG ALLERGIES. REVIEW OF SYSTEMS: As per HPI. PHYSICAL EXAMINATION: As follows; VITAL SIGNS: Height of the patient is 5 feet 7 inches, weight of the patient is 224 pounds, body mass index 35 kg/m2. Heart rate 80, blood pressure 150/86. HEENT: PERRLA, intact. NECK: Supple. No carotid bruits or thyromegaly. CHEST: Clear to auscultation. HEART: S1 and S2 regular. ABDOMEN: Soft. EXTREMITIES: Clubbing and cyanosis negative. LABORATORY DATA: Most recent cardiac workup as follows: The patient had echocardiogram with an ejection fraction of 40-45%, mild mitral regurgitation, mild tricuspid regurgitation. The patient had a stress test on 09/06/2016 that is abnormal myocardial perfusion study, reversible apical defect and inferior defect. This is a followup stress test post PCI. IMPRESSION: Abnormal stress test showing apical and inferior reversible ischemia, history of coronary artery disease, diabetes, hypertension, hyperlipidemia, obesity, history of percutaneous transluminal coronary angioplasty, plain balloon angioplasty in [address] Magallanes, history of percutaneous transluminal coronary angioplasty of left anterior descending and right coronary artery after non-STEMI on 02/02/2017, rule out in-stent restenosis. RECOMMENDATIONS: Further recommendations after the cardiac catheterization. Risks, benefits, and alternatives discussed with the patient, the patient agreed. We will proceed for cardiac catheterization. Thank you Dr. Chaudhry for providing me the opportunity in taking care of the patient. Rowdy Moreno MD cc: Anant Chaudhry MD MTDD
[2017-10-10 08:18] LABS: BASO # 0.01 K/mm3 (0.0-2.0); BASO % 0.1 % (0.0-3.0); EOS # 0.1 (0.0-0.7); EOS % 1.4 % (1.5-5.0); GRAN # 6.75 (1.4-6.5); GRAN % 68.7 % (50.0-68.0); HEMATOCRIT 36.5 % (42.0-52.0); LYMPH % 20.1 % (22.0-35.0); MEAN CELL VOLUME 78.5 fl (80.0-105.0); MEAN CORPUSCULAR HEMOGLOBIN 24.9 pg (25.0-35.0); MEAN CORPUSCULAR HGB CONC 31.8 g/dl (31.0-37.0); MEAN PLATELET VOLUME 11.2 fl (7.0-11.0); MONO % 9.7 % (1.0-6.0); RED CELL DISTRIBUTION WIDTH 17.1 % (11.5-14.5); WHITE BLOOD COUNT 9.8 10^3/ul (4.5-11.0)
[2017-10-10 08:27] LABS: BLOOD UREA NITROGEN 19 mg/dL (7-21); CALCIUM 9.3 mg/dL (8.4-10.5); CARBON DIOXIDE 23 mmol/L (21-33); CHLORIDE 107 mmol/L (98-107); CHOLESTEROL 143 mg/dL (130-200); GFR AFRICAN-AMERICAN > 60; GLUCOSE,RANDOM 141 mg/dL (70-110); POTASSIUM 3.9 mmol/L (3.6-5.0); SODIUM 140 mmol/L (132-148)
[2017-10-10 08:30] LABS: INR 1.05 (0.93-1.08)
[2017-10-10 08:31] LABS: PARTIAL THROMBOPLASTIN TIME 30.9 Seconds (25.1-36.5)
[2017-10-10 08:34] VITALS: O2SAT 98
[2017-10-10] MEDS ORDERED: Lidocaine 2% Inj (20ml) ONE (10:19)
[2017-10-10] MEDS ORDERED: Midazolam 2 MG/2 ML VIAL ONE (10:20)
[2017-10-10] MEDS ORDERED: Iohexol 350mgl/ml 50 ML ONE (10:55)
[2017-10-10] MEDS ORDERED: Eptifibatide 20 mg/10mL Inj IVP ONE (10:58)
[2017-10-10] MEDS ORDERED: Phenylephrine 10 mg/ml Inj ONE (11:04)
[2017-10-10] MEDS ORDERED: Iohexol 350 MG/100 ML VIAL ONE (11:09)
[2017-10-10] MEDS ORDERED: Insulin Lispro 1 UNITS/0.01 ML SC PRN (12:12)
[2017-10-10] MEDS ORDERED: Sodium Chloride 0.9% 1,000 ML IV SCH (12:15)
[2017-10-10 15:43] LABS: BASO # 0.02 K/mm3 (0.0-2.0); BASO % 0.2 % (0.0-3.0); EOS # 0.1 (0.0-0.7); EOS % 0.8 % (1.5-5.0); GRAN # 9.49 (1.4-6.5); GRAN % 80.9 % (50.0-68.0); LYMPH # 1.2 (1.2-3.4); LYMPH % 10.3 % (22.0-35.0); MEAN CELL VOLUME 79.4 fl (80.0-105.0); MEAN CORPUSCULAR HEMOGLOBIN 24.5 pg (25.0-35.0); MEAN CORPUSCULAR HGB CONC 30.9 g/dl (31.0-37.0); MEAN PLATELET VOLUME 10.8 fl (7.0-11.0); MONO # 0.9 (0.1-0.6); MONO % 7.8 % (1.0-6.0); RED CELL DISTRIBUTION WIDTH 17.3 % (11.5-14.5); WHITE BLOOD COUNT 11.7 10^3/ul (4.5-11.0)
[2017-10-10 15:51] LABS: BLOOD UREA NITROGEN 17 mg/dL (7-21); CALCIUM 8.7 mg/dL (8.4-10.5); CARBON DIOXIDE 24 mmol/L (21-33); CHLORIDE 108 mmol/L (98-107); GFR AFRICAN-AMERICAN > 60; GLUCOSE,RANDOM 143 mg/dL (70-110); POTASSIUM 4.6 mmol/L (3.6-5.0); SODIUM 141 mmol/L (132-148)
--- NOTE | 2017-10-10 15:54 | CARD ---
APPROVED REPORT Procedure(s) performed: Left Heart Catheterization PTCA with Stenting of Mid LAD with JESSICA HISTORY 7 days), most recent EF: 40%. (EF Method: RADIONUCLIDE), diabetes mellitus with insulin treatment , previous diagnostic cath, previous PCI (The PCI date was 02/02/2017), hypertension , dyslipidemia , Had an abnormal stress test apical Ischemia. INDICATION The indication(s) include : positive stress test. CASE TECHNIQUE The patient was brought electively to the Cardiac Catheterization Laboratory in a fasting state and was prepped and draped in a sterile manner. The right femoral groin was infiltrated with 2% Lidocaine subcutaneous anesthesia. A 6 Fr x 11 cm Sondra sheath was inserted into the right femoral artery without difficulty. Coronary angiography was performed using coronary diagnostic catheters. The left coronary system was accessed and visualized with a Diagnostic ,5 Fr JL 4 catheter. The right coronary system was accessed and visualized with a Diagnostic ,5 Fr JR 4 catheter. The left ventricle was accessed and visualized with a 5 Fr Pigtail 145 (Angled) catheter. Left ventricular/Aortic Valve gradient assessed on pullback. Left ventriculogram was performed in ORELLANA projection. Closure device was deployed with a 6 Fr Perclose ProGlide without any complications. The patient tolerated the procedure well and there were no complications associated with the procedure. Vessel Analysis The patient's coronary anatomy is right dominant. The left main coronary artery is a large size vessel with diffuse calcification noted throughout this vessel and without significant stenosis. The left main trifurcates to the left anterior descending, circumflex, and ramus. The left anterior descending artery is a medium size vessel with diffuse calcification noted throughout this vessel and with significant stenosis. Distal LAD is Diffusely diseased Like a thread, not by pass able There is a 80-90% stenosis in the mid segment. patent stent in proximal LAD The first diagonal branch is a small size vessel with diffuse calcification noted throughout this vessel and without significant stenosis. The second diagonal branch is a small size vessel with diffuse calcification noted throughout this vessel and with significant stenosis. There is a 80-90% stenosis in the ostial segment. The circumflex artery is a medium size vessel with diffuse calcification noted throughout this vessel and with significant stenosis. There is a 80% stenosis in the mid segment. The ramus intermedius artery is a medium size vessel with diffuse calcification noted throughout this vessel and without significant stenosis. The right coronary artery is a large size vessel with diffuse calcification noted throughout this vessel and without significant stenosis. Patent stent proximally There is a 30-40% stenosis in the mid segment. Left Ventricle The left ventricle is Borderline in size with Mildly decreased contractility. Ischemic cardiomyopathy. The left ventricular ejection fraction is estimated to be 45-50%. The left ventricular end diastolic pressure is 12-14 mmHg. There was no gradient across the aortic valve upon pullback. PCI Technique Lesion Anticoagulation was achieved with Heparin. Percutaneous coronary intervention was performed on the mid left anterior descending artery segment. The lesion stenosis prior to intervention was 80-90% with JENNIFER 2 flow. A 6 Fr XB 3.5 Guide Catheter was used to engage the ostium. BALLOON DILATION A Balloon catheter 2.0 x 10 mm Sprinter RX was inserted and inflated up to 8.00atm for 24seconds. STENT DEPLOYMENT A drug-eluting stent 2.5 x 8 mm Resolute JESSICA was inserted and inflated up to 9.00atm for 17seconds. POST STENT DEPLOYMENT BALLOON DILATION A Balloon catheter 2.5 x 12 mm Trek RX NC was inserted and inflated up to 14.00atm for 13seconds. Final angiography reveals 0 % stenosis with JENNIFER 3 flow. PCI Technique Lesion 2 Percutaneous Coronary Intervention was performed on the mid circumflex artery segment. The lesion stenosis prior to intervention was 80% with JENNIFER 3 flow. A 6 Fr XB 3.5 Guide Catheter was used to engage the ostium. A 0.014 x 182 cm Choice PT Extra Support Interventional Guidewire was used to cross the lesion. COMMENTS Unable to cross b/c of severe hair pin turn and right angle take off. Conclusion Patent Stent In Proximal RCA Patent Stent in Proximal LAD Mid LAD has 80% stenosis Distal LAD is Diffusely Disease not suitable for CABG Successful pTCA with JESSICA of Mid LAD Unable to cross Cx b/c of tortousity of Vessel( in past 2006 only POBA was done unable to cross stent, and 02/02/2017 also could not cross b/c of tortousity) Mildly decreased LV FX. EF-45-50%, [id number] Recommendations Cardiac Rehabilitation ReferralDaily ASA with Plavix for at least one year Aggressive Medical TherapyCardiac Risk Reduction Program Weight Loss Reduction Program CC; Dr. hCaudhry.
[2017-10-10] MEDS ORDERED: Insulin Reg-LOW-Coverage SC SCH (16:30)
[2017-10-10] MEDS ORDERED: Metoprolol Succinate 25 mg XL Tab PO SCH (18:00)
[2017-10-10 18:16] VITALS: RESP 18; TEMP 98
[2017-10-10 18:17] VITALS: BP 115/62; PULSE 86
--- NOTE | 2017-10-10 18:50 | CARD ---
APPROVED REPORT EKG Measurement Heart [id number] <Conclusion> Sinus rhythm with occasional premature ventricular complexes Otherwise normal ECG
--- NOTE | 2017-10-10 19:04 | CARD ---
APPROVED REPORT EKG Measurement Heart [id number] <Conclusion> Normal sinus rhythm Moderate voltage criteria for LVH, may be normal variant Borderline ECG
[2017-10-11] MEDS ORDERED: Non Formulary Medication (Fenofibrate [Triglide] 160 MG) PO SCH (10:00)
== END 2017-10-10 20:05 | disposition home or self-care (01) ==
LOC: CATH 07:26 → 2RSO 12:00 → CATH 20:05
PROVIDERS: ATTEND Internal Medicine Cardiovascular Disease
DX: I25.10 Atherosclerotic heart disease of native coronary artery without angina pectoris (principal); I25.5 Ischemic cardiomyopathy; I08.1 Rheumatic disorders of both mitral and tricuspid valves; I10 Essential (primary) hypertension; E78.5 Hyperlipidemia, unspecified; E11.9 Type 2 diabetes mellitus without complications; E66.9 Obesity, unspecified; Z68.35 Body mass index [BMI] 35.0-35.9, adult; I25.2 Old myocardial infarction; Z95.5 Presence of coronary angioplasty implant and graft; Z79.4 Long term (current) use of insulin
CPT/HCPCS: 36415; 80048; 80061; 82948; 85025; 85175; 85576; 85610; 85730; 86850; 86900; 93005; 93458; 99152; 99153; C1725 ×2; C1760; C1769 ×3; C1874; C1887 ×3; C2629; C9600; J1327; J1644 ×2; J2250; J2370; J3010; J7030; J7040 ×2; Q9967 ×3

== ENCOUNTER 2018-01-19 08:46 | Emergency (ER) | payer MEDICAID ==
[2018-01-19 08:46] VITALS: BMI 35.0
[2018-01-19 09:01] VITALS: RESP 18; TEMP 98.8
[2018-01-19 09:27] LABS: BASO # 0.02 K/mm3 (0.0-2.0); BASO % 0.1 % (0.0-3.0); EOS # 0.1 (0.0-0.7); EOS % 0.4 % (1.5-5.0); GRAN # 15.25 (1.4-6.5); GRAN % 86.2 % (50.0-68.0); HEMOGLOBIN 11.9 g/dL (14.0-18.0); LYMPH # 1.2 (1.2-3.4); LYMPH % 6.7 % (22.0-35.0); MEAN CELL VOLUME 76.6 fl (80.0-105.0); MEAN CORPUSCULAR HEMOGLOBIN 23.8 pg (25.0-35.0); MEAN PLATELET VOLUME 12.3 fl (7.0-11.0); MONO # 1.2 (0.1-0.6); MONO % 6.6 % (1.0-6.0); RBC 5.01 10^6/uL (3.5-6.1); RED CELL DISTRIBUTION WIDTH 17.7 % (11.5-14.5); WHITE BLOOD COUNT 17.7 10^3/ul (4.5-11.0)
[2018-01-19 09:37] LABS: ALB/GLOB RATIO 1.4 (1.1-1.8); ALBUMIN 4.2 g/dL (3.0-4.8); ALT/SGPT 25 U/L (7-56); AST/SGOT 29 U/L (17-59); BLOOD UREA NITROGEN 24 mg/dL (7-21); CALCIUM 9.8 mg/dL (8.4-10.5); GFR AFRICAN-AMERICAN > 60; GFR NON-AFRICAN AMERICAN > 60
[2018-01-19 09:41] LABS: INR 1.01 (0.93-1.08); PARTIAL THROMBOPLASTIN TIME 31.2 Seconds (25.1-36.5); PROTHROMBIN TIME 11.6 SECONDS (9.4-12.5)
[2018-01-19 09:48] LABS: TROPONIN I 0.02 ng/mL
--- NOTE | 2018-01-19 09:48 | ED PDOC ---
Arrival/HPI - General Chief Complaint: Chest Pain Time Seen by Provider: 01/19/18 09:47 Historian: Patient, Spouse - History of Present Illness Narrative History of Present Illness (Text): 01/19/18 09:48 Kolby Castañeda is a 57 year old male, whose past medical history includes CAD s/p PTCA, hypertension, diabetes, and hyperlipidemia, who presents to the Emergency department complaining of right sided intermittent CP since 11 pm last night. Patient stated while watching TV his pain started. admits patient had been c/o of chest pain during the overnight. Patient stated pain is similar like when he was admitted for CP last year. Patient denies abdominal pain, cough, hemoptysis, skin rash, recent trauma, leg swelling, calf pain, dizziness, or abnormal gait. Time/Duration: Other (see hpi) Context: Home Past Medical History - Provider Review Nursing Documentation Reviewed: Yes - Infectious Disease Hx of Infectious Diseases: None - Cardiac Hx Hypertension: Yes Hx Pacemaker: No - Pulmonary Hx Respiratory Disorders: No - Neurological Hx Paralysis: No - HEENT Other/Comment: Chronic Left ear condition, missing left TM. - Renal Hx Renal Disorder: No - Endocrine/Metabolic Hx Diabetes Mellitus Type 1: Yes Hx Diabetes Mellitus Type 2: Yes - Hematological/Oncological Hx Blood Transfusions: No - Integumentary Hx Dermatological Disorder: No - Musculoskeletal/Rheumatological Hx Musculoskeletal Disorders: No - Gastrointestinal Hx Gastrointestinal Disorders: Yes - Genitourinary/Gynecological Hx Genitourinary Disorders: No - Psychiatric Hx Emotional Abuse: No Hx Physical Abuse: No Hx Substance Use: No - Surgical History Hx Cholecystectomy: Yes Hx Coronary Stent: Yes ([id number]) Other/Comment: cyst on back - Anesthesia Hx Anesthesia Reactions: No Hx Malignant Hyperthermia: No - Suicidal Assessment Feels Threatened In Home Enviroment: No Family/Social History - Physician Review Nursing Documentation Reviewed: Yes Family/Social History: Other (noncontributory) Smoking Status: Never Smoked Hx Alcohol Use: Yes (social) Frequency of alcohol use: Socially Hx Substance Use: No Hx Substance Use Treatment: No Allergies/Home Meds Allergies/Adverse Reactions: Allergies No Known Allergies Allergy (Verified 02/12/17 23:47) Home Medications: Home Meds Medication Instructions Recorded Confirmed Canagliflozin [Invokana] 100 mg PO DAILY 11/30/16 01/19/18 Cetirizine HCl [Wal-Zyr] 10 mg PO DAILY 11/30/16 01/19/18 Folic Acid 400 mg PO DAILY 11/30/16 01/19/18 Losartan [Cozaar] 100 mg PO DAILY 11/30/16 01/19/18 Metoprolol Succinate [Toprol XL] 50 mg PO BID 11/30/16 01/19/18 Pravastatin Sodium [Pravachol] 80 mg PO DAILY 11/30/16 01/19/18 Ranitidine HCl [Zantac] 300 mg PO DAILY 08/24/17 01/19/18 Insulin Glargine,Hum.rec.anlog 50 unit SQ HS 01/19/18 01/19/18 [Parmindertonyamparo Brannonisabela U-100] Review of Systems - Review of Systems Constitutional: Normal. absent: Fatigue, Weight Change, Fevers Eyes: Normal ENT: Normal Respiratory: Normal Cardiovascular: Chest Pain. absent: Palpitations, Edema, Calf Pain, RAYMOND, Orthopnea, Syncope Gastrointestinal: Normal. absent: Abdominal Pain, Nausea, Vomiting Genitourinary Male: Normal Musculoskeletal: Normal Skin: Normal Neurological: Normal Endocrine: Normal Hemo/Lymphatic: Normal Psychiatric: Normal Physical Exam Vital Signs Temp Pulse Resp BP Pulse Ox 01/19/18 11:45 73 18 109/66 98 01/19/18 10:50 92 H 18 104/64 98 01/19/18 08:57 98.8 F 90 18 116/57 L 96 Temperature: Afebrile Blood Pressure: Normal Pulse: Regular Respiratory Rate: Normal Appearance: Positive for: Well-Appearing, Non-Toxic, Comfortable Pain Distress: None Mental Status: Positive for: Alert and Oriented X 3 - Systems Exam Head: Present: Atraumatic, Normocephalic Pupils: Present: PERRL Extroacular Muscles: Present: EOMI Conjunctiva: Present: Normal Mouth: Present: Moist Mucous Membranes Neck: Present: Normal Range of Motion Respiratory/Chest: Present: Clear to Auscultation, Good Air Exchange. No: Respiratory Distress, Accessory Muscle Use, Wheezes, Retracting, Rhonchi Cardiovascular: Present: Regular Rate and Rhythm, Normal S1, S2. No: Murmurs Abdomen: Present: Normal Bowel Sounds. No: Tenderness, Distention, Peritoneal Signs Back: Present: Normal Inspection Upper Extremity: Present: Normal Inspection, Normal ROM. No: Cyanosis, Edema Lower Extremity: Present: Normal Inspection, Normal ROM. No: Edema Neurological: Present: GCS=15, CN II-XII Intact, Speech Normal Skin: Present: Warm, Dry, Normal Color. No: Rashes Psychiatric: Present: Alert, Oriented x 3, Normal Insight, Normal Concentration Medical Decision Making ED Course and Treatment: 01/19/18 12:42 Leaving Against Medical Advice (AMA): This patient is choosing to leave against medical advice. The EP has personally explained to the pt that choosing to do so may result in permanent bodily harm or . The EP discussed at great length that without further evaluation and monitoring there may be unforeseen circumstances and/or deterioration causing permanent bodily harm or as a result of their choice. The pt verbalized these risks back to the physician in laymans terms. The pt is alert, oriented, and shows the mental capacity to make clear decisions regarding the pts health care at this time. The pt continues to wish to leave against medical advice. In light of the pts decision to leave AMA, follow-up has been recommended and the pt is aware of the importance of following up as instructed. The pt has been advised that they should return to the ED immediately if they change their mind at any time, or if condition begins to change or worsen in any way. I recommended patient to return to ED at anytime, or if symptoms worsen. Re-evaluation Time: 12:42 Reassessment Condition: Unchanged - Lab Interpretations Lab Results: 01/19/18 08:55 01/19/18 08:55 Lab Results 01/19/18 08:55: PT 11.6, INR 1.01, APTT 31.2 01/19/18 08:55: Sodium 140, Potassium 4.1, Chloride 106, Carbon Dioxide 23, Anion Gap 15, BUN 24 H, Creatinine 1.0, Est GFR ( Amer) > 60, Est GFR ( Non-Af Amer) > 60, Random Glucose 201 H, Calcium 9.8, Total Bilirubin 0.9, AST 29, ALT 25, Alkaline Phosphatase 59, Lactate Dehydrogenase 357, Total Creatine Kinase 76, Troponin I 0.02 D, Total Protein 7.3, Albumin 4.2, Globulin 3.1, Albumin/Globulin Ratio 1.4 01/19/18 08:55: WBC 17.7 H D, RBC 5.01, Hgb 11.9 L, Hct 38.4 L, MCV 76.6 L, MCH 23.8 L, MCHC 31.0, RDW 17.7 H, Plt Count 225, MPV 12.3 H, Gran % 86.2 H, Lymph % (Auto) 6.7 L, [place] % (Auto) 6.6 H, Eos % (Auto) 0.4 L, Baso % (Auto) 0.1, Gran # 15.25 H, Lymph # (Auto) 1.2, [place] # (Auto) 1.2 H, Eos # (Auto) 0.1, Baso # (Auto) 0.02 I have reviewed the lab results: Yes Interpretation: Abnormal lab values (leukocytosis) - RAD Interpretation Narrative RAD Interpretations (Text): 01/19/18 11:31 HISTORY: chest pain COMPARISON: 02/02/2017 FINDINGS: LUNGS: The lungs are clear. PLEURA: No significant pleural effusion identified, no pneumothorax apparent. CARDIOVASCULAR: There is persistent mild cardiomegaly. OSSEOUS STRUCTURES: No significant abnormalities. VISUALIZED UPPER ABDOMEN: Normal. OTHER FINDINGS: None. IMPRESSION: No active pulmonary disease. Radiology Orders: 01/19/18 09:08 CHEST PORTABLE [RAD] Stat - EKG Interpretation Interpreted by ED Physician: Yes (Sinus rhythm with pac @ [address] changes) Type: 12 lead EKG Comparison: No previous EKG avail. - Medication Orders Current Medication Orders: Discontinued Medications Aspirin (Aspirin) 325 mg PO STAT STA Stop: 01/19/18 10:00 Last Admin: 01/19/18 10:16 Dose: 325 mg Disposition/Present on Arrival - Present on Arrival Any Indicators Present on Arrival: No History of DVT/PE: No History of Uncontrolled Diabetes: Yes Urinary Catheter: No History of Decub. Ulcer: No History Surgical Site Infection Following: None - Disposition Have Diagnosis and Disposition been Completed?: Yes Diagnosis: Chest pain Disposition: AGAINST MEDICAL ADVICE Disposition Time: 12:43 Patient Problems: Current Active Problems Problem Status Onset Chest pain Acute Condition: UNKNOWN Discharge Instructions (ExitCare): Chest Pain (ED) Referrals: Anant Chaudhry MD [Primary Care Provider] - Follow up with primary Forms: [employer] ([place])
--- NOTE | 2018-01-19 10:42 | RAD ---
HISTORY: chest pain COMPARISON: 02/02/2017 FINDINGS: LUNGS: The lungs are clear. PLEURA: No significant pleural effusion identified, no pneumothorax apparent. CARDIOVASCULAR: There is persistent mild cardiomegaly. OSSEOUS STRUCTURES: No significant abnormalities. VISUALIZED UPPER ABDOMEN: Normal. OTHER FINDINGS: None. IMPRESSION: No active pulmonary disease.
[2018-01-19 14:03] VITALS: O2SAT 98
[2018-01-19 14:05] VITALS: BP 109/66; PULSE 73
--- NOTE | 2018-01-19 17:47 | CARD ---
APPROVED REPORT EKG Measurement Heart [id number] <Conclusion> Sinus rhythm with premature atrial complexes Otherwise normal ECG
== END 2018-01-19 12:45 | disposition left against medical advice (07) ==
LOC: ED 08:46
DX: R07.9 Chest pain, unspecified (principal); I25.10 Atherosclerotic heart disease of native coronary artery without angina pectoris; I10 Essential (primary) hypertension; E11.9 Type 2 diabetes mellitus without complications; E78.5 Hyperlipidemia, unspecified; Z98.61 Coronary angioplasty status